=== PATIENT | female | born 1950 | race Caucasian/White ===

== ENCOUNTER 2018-07-29 16:38 | Emergency (ER) | payer OTHER ==
[2018-07-29 16:45] VITALS: BP 108/70; PULSE 84; TEMP 97.8; BMI 33.8
--- NOTE | 2018-07-29 17:52 | PDOC ---
History of Present Illness - General Chief Complaint: Redness To Affected Area Stated Complaint: FALL Time Seen by Provider: 07/29/18 17:36 History Source: Patient Exam Limitations: No Limitations - History of Present Illness Initial Comments: CHIEF COMPLAINT: 67 y/o afebrile female with no significant PMH c/o worsened left aranda wound. HISTORY OF PRESENT ILLNESS: The patient fell on 07/21. She was seen at [facility] and had xrays of her left foot/ankle and right knee - both were negative. She states she noticed an open wound on her left aranda and applied [place] alysa face mask, which she thinks caused an infection. She came here on 07/24, was evaluated and started on keflex and tylenol. she states the pain has not improved at all and the redness around the wound is worse. She denies fever, chills, streaking, MONGE, dizziness, CP, SOB, n/v/d, abd pain, hematuria, dysuria. Vital signs on arrival are within normal limits. REVIEW OF SYSTEMS: GENERAL/CONSTITUTIONAL: No fever/chills. No weakness. No weight change. MUSCULOSKELETAL: +left foot and ankle pain, swelling and redness. No neck or back pain. SKIN: +open wound to left aranda NEUROLOGIC: No headache, vertigo, loss of consciousness, or loss of sensation. PHYSICAL EXAM: VITAL_SIGNS: within normal limits GENERAL_APPEARANCE: alert, cooperative, no obvious discomfort. MENTAL_STATUS: speech clear, oriented X 3, responds appropriately to questions. NEURO: motor intact and sensory intact in injured extremity. EXTREMITIES: good pulse in injured extremity. Distal left LE, ankle and foot with edema, erythema and warmth. 0.5cm in diameter superficial open wound that appears to be healing well with 6cm of surrounding erythema. Based on prior exam of 07/24, the surrounding erythema has grown from 3cm to 6cm. No streaking. No obvious deformity. SKIN: warm, dry, good color. Past History - Past Medical History Allergies/Adverse Reactions: Allergies Allergy/AdvReac Type Severity Reaction Status Date / Time No Known Allergies Allergy Verified 07/29/18 16:41 Home Medications: Ambulatory Orders Cephalexin [Keflex] 500 mg PO BID #14 capsule 07/24/18 Sulfamethoxazole/Trimethoprim [Bactrim Ds -] 1 tab PO BID #20 tablet 07/29/18 Tramadol HCl 50 mg PO BID #20 tablet MDD 3 07/29/18 CVA: Yes (TIA) COPD: No CHF: No DVT: No - Surgical History Abdominal Surgery: Yes (LT OOPHERECTOMY) - Suicide/Smoking/Psychosocial Hx Smoking History: Never smoked Hx Alcohol Use: No Drug/Substance Use Hx: No *Physical Exam - Vital Signs Last Vital Signs Temp Pulse Resp BP Pulse Ox 97.8 F 84 18 108/70 95 07/29/18 16:42 07/29/18 16:42 07/29/18 16:42 07/29/18 16:42 07/29/18 16:42 ED Treatment Course - LABORATORY CBC & Chemistry Diagram: 07/29/18 18:00 07/29/18 18:00 Medical Decision Making - Medical Decision Making A/P: 67 y/o female with ? worsened left distal aranda wound with ankle swelling. Plan is as follows: 1. Labs 2. Xray to r/o osteo 3. IV toradol Xray left foot/ankle IMPRESSION: (Wet read) No osteo or fracture 10.4 white count with no left shift No fever No streaking Gave patient all results Will send rx for Bactrim to add to keflex Will give DIMITRIOS bandage to left ankle. Will also send tramadol for more pain relief. Instructed the patient to ice the affected area, keep taking tylenol and return to the ER with any worsening or concerning symptoms. *DC/Admit/Observation/Transfer Diagnosis at time of Disposition: Cellulitis Qualifiers: Site of cellulitis: extremity Site of cellulitis of extremity: lower extremity Laterality: left Qualified Code(s): L03.116 - Cellulitis of left lower limb - Discharge Dispostion Disposition: HOME Condition at time of disposition: Good - Referrals Referrals: Gonzales Ramirez MD [Staff Physician] - (Call Tuesday) - Patient Instructions Printed Discharge Instructions: DI for Cellulitis -- Adult, How To Perform RICE (Rest, Ice, Compress, Elevate) Additional Instructions: Discharge Instructions: -Your xray was normal with no broken bones and no bone infection -Your lab results were normal with no sign of infection -A prescription for another antibiotic has been sent to your pharmacy; please take this PLUS the other antibiotic you were already prescribed -A prescription for another pain medication has been sent to your pharmacy; it may cause drowsiness -Use DIMITRIOS bandage to affected ankle -Apply ice to affected area -Call Dr. Ramirez on Tuesday to schedule follow up appointment Instrucciones de descarga: -Miller radiografa era normal, sin fracturas de huesos ni infeccin de huesos. -Geovanna resultados de laboratorio fueron normales sin signos de infeccin. -Loreta receta para otro antibitico monge sido enviada a [employer]; por favor tome teddy MS el otro antibitico que ya le recetaron -Loreta receta para otro medicamento para el dolor monge sido enviada a [employer]; puede causar somnolencia -Utilizar vendaje DIMITRIOS para el tobillo afectado. -Aplicar hielo en la tressa afectada. -Llame al Dr. Ramirez el hood para programar loreta karyn de seguimiento. Print Language: TUNISIAN - Post Discharge Activity
[2018-07-29 18:06] LABS: BASO % 0.9 % (0-2.0); EOS % 1.8 % (0-4.5); HEMATOCRIT 39.7 % (32.4-45.2); HEMOGLOBIN 13.2 GM/dL (10.7-15.3); LYMPH % 25.9 % (8-40); MCH 28.4 pg (25.7-33.7); MCHC 33.2 g/dl (32.0-36.0); MEAN CELL VOLUME 85.6 fl (80-96); MEAN PLT VOLUME 9.3 fl (7.5-11.1); MONO % 9.9 % (3.8-10.2); NEUT % 61.5 % (42.8-82.8); PLATELET COUNT 255 K/MM3 (134-434); RBC 4.64 M/mm3 (3.60-5.2); RDW 13.4 % (11.6-15.6); WHITE BLOOD COUNT 10.4 K/mm3 (4.0-10.0)
[2018-07-29] MEDS ORDERED: KETOROLAC TROMETHAMINE 30 MG/1 ML VIAL IVPUSH ONE (18:12)
[2018-07-29] MEDS ORDERED: KETOROLAC TROMETHAMINE 30 MG/1 ML VIAL ONE (18:13)
[2018-07-29 18:41] LABS: ALBUMIN 3.5 g/dl (3.4-5.0); ALK PHOS 101 U/L (45-117); ANION GAP 7 MMOL/L (8-16); BILIRUBIN,TOTAL 0.2 mg/dL (0.2-1); BLOOD UREA NITROGEN 24 mg/dL (7-18); CALCIUM 9.2 mg/dL (8.5-10.1); CHLORIDE 111 mmol/L (98-107); CO2 23 mmol/L (21-32); CREATININE 0.6 mg/dL (0.55-1.3); GLUCOSE,RANDOM 100 mg/dL (74-106); POTASSIUM 4.5 mmol/L (3.5-5.1); SGOT/AST 19 U/L (15-37); SGPT/ALT 31 U/L (13-61); SODIUM 141 mmol/L (136-145); TOT PROT 7.3 g/dl (6.4-8.2)
== END 2018-07-29 19:12 | disposition home or self-care (01) ==
LOC: JER 16:38
PROC: 3E0333Z Introduction of Anti-inflammatory into Peripheral Vein, Percutaneous Approach (ICD-10-PCS; principal; 2018-07-29)
DX: L03.116 Cellulitis of left lower limb (principal); Z86.73 Personal history of transient ischemic attack (TIA), and cerebral infarction without residual deficits
CPT/HCPCS: 36415; 73610-TC-LT-FY; 73630-TC-LT; 80053; 85025; 87040; 96374; 99281-25

== ENCOUNTER 2018-08-02 19:54 | Inpatient (IN) | payer OTHER ==
--- NOTE | 2018-08-02 21:00 | PDOC ---
Attending Attestation - HPI HPI: 08/02/18 22:08 The patient is a 67 year old female, with a significant past medical history of TIA, HTN and bilateral lower extremity edema, who presents to the ED complaining of left lower extremity pain for the past 2 weeks that has been worsening. She reports that she hit a metal door and has been swollen since. She states that she applied [place] Eamon for inflammation prior to her ED visit 2 weeks ago where she was given Keflex and bacitracin cream with strict return precautions. Patient returned Tuesday and given Bactrim. The patient denies chest pain, shortness of breath, headache and dizziness. Denies fever, chills, nausea, vomiting, diarrhea or constipation. Denies dysuria , frequency, urgency and hematuria. Allergies: None Past surgical history: LT OOPHERECTOMY) Social History: No alcohol, tobacco or drug use reported <Benjamin Ray - Last Filed: 08/02/18 22:08> - Resident Resident Name: Dash Fonseca - ED Attending Attestation I have performed the following: I have examined & evaluated the patient, The case was reviewed & discussed with the resident, I agree w/resident's findings & plan, Exceptions are as noted - Physicial Exam PE: 08/02/18 23:03 Patient is awake and alert, well-nourished, in mild distress Normocephalic and atraumatic PERRLA, EOMI CTA RRR Abdomen soft, nontender, nondistended Left lower extremity: + well demarcated (approx 5cm in diameter) area of erythema with central necrotic center to the medial aspect of the extremity anterior to the medial malleolus. Neurovascularly intact distally; full range of motion of the ankle and foot. + Minimal lymphogenic spread is noted proximally. There is no crepitus or subcutaneous emphysema. - Medical Decision Making 08/02/18 23:10 67-year-old female presents to the ER with signs and symptoms of soft tissue infection that has failed to respond to the course of by mouth cephalexin followed by a course of by mouth Bactrim. I suspect osteomyelitis. Necrotizing fasciitis is less likely. Patient's hemodynamically stable and nontoxic appearing. We'll administer vancomycin and ceftazidime. Will admit for infectious disease evaluation and IV antibiotics. <Serafin Ny - Last Filed: 08/02/18 23:11>
[2018-08-02] MEDS ORDERED: WATER IVPB ONE (21:44)
[2018-08-02] MEDS ORDERED: VANCOMYCIN IVPB ONE (21:44)
[2018-08-02] MEDS ORDERED: DEXTROSE 5% IVPB ONE (21:44)
--- NOTE | 2018-08-02 22:03 | PDOC ---
History of Present Illness - General Chief Complaint: Redness To Affected Area Stated Complaint: LEFT ANKLE PAIN Time Seen by Provider: 08/02/18 20:14 History Source: Patient, Friend (translation) Exam Limitations: No Limitations - History of Present Illness Initial Comments: 08/02/18 21:49 67 yo F, pmh of HTN and bilateral lower ext edema (pt states she takes Clopidogrel for an unknown reason) presents to ED with [facility] as translators for 2 weeks of worsening left lower limb pain, redness and swelling that started after hitting a metal door. Pt states she applied [place] Eamon for inflammation prior to her ED visit 2 weeks ago where she was given Keflex and bacitracin cream with strict return precautions. Patient returned Tuesday and given Bactrim. Pt taking Tylenol for pain 650mg 3x per day which helps. Pt states this am the swelling worsened but area of involvement and quality of pain have not changed. Pt has pain when leg is hanging off bed. Pt had recent negative X ray but MRI non contrast done today in hospital, no official read at this time. Pt denies N/V/F/C, CP, SOB, calf tenderness or changes in urinary habits but does admit to loose stools since starting antibiotics 2 weeks ago. \ Past History - Past Medical History Allergies/Adverse Reactions: Allergies Allergy/AdvReac Type Severity Reaction Status Date / Time No Known Allergies Allergy Verified 07/29/18 16:41 Home Medications: Ambulatory Orders Cephalexin [Keflex] 500 mg PO BID #14 capsule 07/24/18 Sulfamethoxazole/Trimethoprim [Bactrim Ds -] 1 tab PO BID #20 tablet 07/29/18 Tramadol HCl 50 mg PO BID #20 tablet MDD 3 07/29/18 CVA: Yes (TIA) COPD: No CHF: No DVT: No - Surgical History Abdominal Surgery: Yes (LT OOPHERECTOMY) - Suicide/Smoking/Psychosocial Hx Smoking History: Never smoked Hx Alcohol Use: No Drug/Substance Use Hx: No Review of Systems - Review of Systems Constitutional: No: Chills, Fever Respiratory: No: Shortness of Breath Cardiac (ROS): No: Chest Pain, Lightheadedness ABD/GI: Yes: Diarrhea (loose stools since taking antibiotics). No: Constipated , Nausea, Vomiting : No: Burning, Dysuria Integumentary: Yes: Other (swelling and redness to LLE). No: Pruritus *Physical Exam - Vital Signs Last Vital Signs Temp Pulse Resp BP Pulse Ox 97.6 F 89 18 123/76 97 08/02/18 19:57 08/02/18 19:57 08/02/18 19:57 08/02/18 19:57 08/02/18 19:57 - Physical Exam General Appearance: Yes: Nourished, Appropriately Dressed. No: Apparent Distress HEENT: positive: EOMI Respiratory/Chest: positive: Lungs Clear, Normal Breath Sounds. negative: Respiratory Distress, Accessory Muscle Use Cardiovascular: positive: Regular Rhythm, Regular Rate, S1, S2, Edema (chronic LE edema however L side more swollen today than past). negative: JVD, Murmur Vascular Pulses: Dorsalis-Pedis (R): 4+, Doralis-Pedis (L): 4+ Comments:: 08/02/18 22:51 popliteal R and L pulses equal Gastrointestinal/Abdominal: positive: Normal Bowel Sounds, Flat, Soft. negative : Guarding, Rebound, Tenderness Extremity: positive: Normal Capillary Refill Integumentary: positive: Dry, Warm, Other (left lower leg swelling, erythema (3 inche diameter) and tracking of redness with tenderness to affected area. No ) Neurologic: positive: Fully Oriented, Alert, Normal Mood/Affect, Normal Response ED Treatment Course - LABORATORY CBC & Chemistry Diagram: 08/02/18 23:20 *DC/Admit/Observation/Transfer Diagnosis at time of Disposition: Osteomyelitis Qualifiers: Osteomyelitis type: subacute Osteomyelitis location: tibia Laterality: left Qualified Code(s): M86.262 - Subacute osteomyelitis, left tibia and fibula - Discharge Dispostion Condition at time of disposition: Stable Decision to Admit order: Yes - Referrals - Patient Instructions - Post Discharge Activity
[2018-08-02] MEDS ORDERED: DIPHTH,PERTUSS(ACELL),TET 0.5 ML DISP.SYRIN IM ONE (22:12)
[2018-08-02] MEDS ORDERED: cefTAZidime PENTAHYDRATE 1 GM/50ML PRE-DOCKED (RESTRICTED TO ID) IVPB ONE (22:22)
[2018-08-02 23:30] LABS: BASO % 0.8 % (0-2.0); EOS % 1.9 % (0-4.5); HEMOGLOBIN 12.9 GM/dL (10.7-15.3); LYMPH % 25.2 % (8-40); MCH 28.2 pg (25.7-33.7); MEAN CELL VOLUME 85.3 fl (80-96); MEAN PLT VOLUME 10.1 fl (7.5-11.1); MONO % 9.3 % (3.8-10.2); NEUT % 62.8 % (42.8-82.8); PLATELET COUNT 324 K/MM3 (134-434); RBC 4.56 M/mm3 (3.60-5.2); RDW 14.1 % (11.6-15.6); WHITE BLOOD COUNT 9.9 K/mm3 (4.0-10.0)
[2018-08-02 23:43] LABS: INR 1.11 (0.83-1.09); PROTHROMBIN TIME (PATIENT) 13.1 SEC (9.7-13.0)
[2018-08-02 23:46] LABS: ACTIVATED PTT 26.5 SECONDS (25.2-36.5)
[2018-08-03 00:02] LABS: URINE APPEARANCE CLEAR; URINE BILIRUBIN NEGATIVE (<2.0 mg/dL); URINE COLOR COLORLESS; URINE GLUCOSE (UA) NEGATIVE (NEGATIVE); URINE KETONE NEGATIVE (NEGATIVE); URINE LEUK ESTERASE NEGATIVE (NEGATIVE); URINE NITRITE NEGATIVE (NEGATIVE); URINE PROTEIN NEGATIVE (NEGATIVE); URINE UROBILINOGEN NEGATIVE mg/dL (0.2-1.0)
--- NOTE | 2018-08-03 00:21 | HP ---
CHIEF COMPLAINT: Left ankle swelling, pain PCP: Dr Ramirez HISTORY OF PRESENT ILLNESS: Pt is a 67 y/o lady (Leatha Mejia) who presented to [facility] yesterday evening c/o severe left lower extremity erythema, pain, and swelling. Pt endorses she injured her leg on a screen door earlier this month (07/19/18). Pt went to [facility] earlier this month where an xray was taken of her left lower extremity which did not reveal any fracture. Pt decided to use [place] alysa (bentonite alysa) after her leg was not healing. Pt came to our ED where the alysa was removed from her wound by the attending physician and was prescribed Keflex.. Pt then went gain to our ED on 07/29 where she was then prescribed Bactrim in addition to her Keflex as her wound was not healing. Pt earlier yesterday went to our Medical clinic and was then referred to our hospital for an MRI of her lower extremity. Pt states symptoms have progressed. Denies chest pain, shortness of breath, lightheadedness, nausea or vomiting. ER course was notable for: (1) CRP 0.8 (2) Ceftazadime 2 gm (3) Zosyn 3.375 gm Recent Travel: Denies PAST MEDICAL HISTORY: Peptic ulcer (resolved), thyroid nodule, TIA?, PAST SURGICAL HISTORY: Social History: Smoking:denies Alcohol:denies Drugs: denies Family History: Paternal grandfather-> stomach cancer, Maternal grandfather colon cancer. Mom--> HTN, TIA? Allergies No Known Allergies Allergy (Verified 07/29/18 16:41) HOME MEDICATIONS: Home Medications Medication Instructions Recorded Cephalexin [Keflex] 500 mg PO BID #14 capsule 07/24/18 Sulfamethoxazole/Trimethoprim 1 tab PO BID #20 tablet 07/29/18 [Bactrim Ds -] Tramadol HCl 50 mg PO BID #20 tablet MDD 3 07/29/18 REVIEW OF SYSTEMS CONSTITUTIONAL: Absent: fever, chills, diaphoresis, generalized weakness, malaise, loss of appetite, weight change HEENT: Absent: rhinorrhea, nasal congestion, throat pain, throat swelling, difficulty swallowing, mouth swelling, ear pain, eye pain, visual changes CARDIOVASCULAR: Absent: chest pain, syncope, palpitations, irregular heart rate, lightheadedness , peripheral edema RESPIRATORY: Absent: cough, shortness of breath, dyspnea with exertion, orthopnea, wheezing, stridor, hemoptysis GASTROINTESTINAL: Absent: abdominal pain, abdominal distension, nausea, vomiting, diarrhea, constipation, melena, hematochezia GENITOURINARY: Absent: dysuria, frequency, urgency, hesitancy, hematuria, flank pain, genital pain MUSCULOSKELETAL: PRESENT: Left leg swelling SKIN: Absent: rash, itching, pallor HEMATOLOGIC/IMMUNOLOGIC: Absent: easy bleeding, easy bruising, lymphadenopathy, frequent infections ENDOCRINE: Absent: unexplained weight gain, unexplained weight loss, heat intolerance, cold intolerance NEUROLOGIC: Absent: headache, focal weakness or paresthesias, dizziness, unsteady gait, seizure, mental status changes, bladder or bowel incontinence PSYCHIATRIC: Absent: anxiety, depression, suicidal or homicidal ideation, hallucinations. PHYSICAL EXAMINATION Vital Signs - 24 hr 08/02/18 19:57 Temperature 97.6 F Pulse Rate 89 Respiratory 18 Rate Blood Pressure 123/76 O2 Sat by Pulse 97 Oximetry (%) GENERAL:AA)x3, NAD HEAD: NC/AT EYES: R pupil dilated, left constricted 2/2 surgery EARS, NOSE, THROAT: MMM NECK: Supple, No thyromegaly, no adenopathy LUNGS:CTA B/L. HEART: RRR, No MRG S1 S2 ABDOMEN: ND No HSM NT MUSCULOSKELETAL: Tenderness LLE UPPER EXTREMITIES: 2No CCE LOWER EXTREMITIES:Erythema, pain, black necrotic eschar LLE NEUROLOGICAL: CN 2-12 intact SKIN: Cellulitis LLE Laboratory Results - last 24 hr 08/02/18 08/02/18 08/02/18 23:20 23:20 23:20 WBC 9.9 RBC 4.56 Hgb 12.9 Hct 39.0 MCV 85.3 MCH 28.2 MCHC 33.0 RDW 14.1 Plt Count 324 D MPV 10.1 Absolute Neuts (auto) 6.2 Neutrophils % 62.8 Lymphocytes % 25.2 Monocytes % 9.3 Eosinophils % 1.9 Basophils % 0.8 Nucleated RBC % 0 PT with INR 13.10 H INR 1.11 H PTT (Actin FS) 26.5 Lactic Acid 1.2 Urine Color Urine Appearance Urine pH Ur Specific [place] Urine Protein Urine Glucose (UA) Urine Ketones Urine Blood Urine Nitrite Urine Bilirubin Urine Urobilinogen Ur Leukocyte Esterase 08/02/18 23:40 WBC RBC Hgb Hct MCV MCH MCHC RDW Plt Count MPV Absolute Neuts (auto) Neutrophils % Lymphocytes % Monocytes % Eosinophils % Basophils % Nucleated RBC % PT with INR INR PTT (Actin FS) Lactic Acid Urine Color Colorless Urine Appearance Clear Urine pH 5.0 Ur Specific [place] 1.008 L Urine Protein Negative Urine Glucose (UA) Negative Urine Ketones Negative Urine Blood Negative Urine Nitrite Negative Urine Bilirubin Negative Urine Urobilinogen Negative Ur Leukocyte Esterase Negative ASSESSMENT/PLAN: Pt is a 67 y/o lady (B. Roberto) who presented to [facility] yesterday evening c/o severe left lower extremity erythema, pain, and swelling # Cellulitis/Osteomyelitis -vancomycin IV -zosyn IV -Blood Cultures -ID Consult -MRI Pending offical read -surgery consult -Warm compress -Doppler LE FEN LR@75cc/hr Monitor Electrolytes Regular Diet DVT ppx: Hep SQ TID Dispo: Continue to monitor med-surg Visit type - Emergency Visit Emergency Visit: Yes ED Registration Date: 08/03/18 Care time: The patient presented to the Emergency Department on the above date and was hospitalized for further evaluation of their emergent condition. - New Patient This patient is new to me today: Yes Date on this admission: 08/03/18 - Critical Care Critical Care patient: No
[2018-08-03 05:26] LABS: ALBUMIN 3.5 g/dl (3.4-5.0); ALK PHOS 96 U/L (45-117); ANION GAP 7 MMOL/L (8-16); BILIRUBIN,TOTAL 0.4 mg/dL (0.2-1); BLOOD UREA NITROGEN 21 mg/dL (7-18); CALCIUM 9.2 mg/dL (8.5-10.1); CHLORIDE 110 mmol/L (98-107); CO2 22 mmol/L (21-32); CREATININE 0.8 mg/dL (0.55-1.3); GLUCOSE,RANDOM 99 mg/dL (74-106); POTASSIUM 4.3 mmol/L (3.5-5.1); SGOT/AST 12 U/L (15-37); SGPT/ALT 26 U/L (13-61); SODIUM 140 mmol/L (136-145); TOT PROT 6.9 g/dl (6.4-8.2)
[2018-08-03] MEDS ORDERED: HEPARIN NA (PORCINE) 5,000 UNITS/ML 1ML VIAL ONE (06:36)
[2018-08-03] MEDS ORDERED: PIPERACILLIN/TAZOB 3.375 GM 3.375 GM/50 ML BAG IVPB ONE (06:37)
[2018-08-03] MEDS ORDERED: PIPERACILLIN/TAZOB 3.375 GM 3.375 GM in DEXTROSE 5%-WATER - 50 ML IVPB ONE (06:45)
[2018-08-03 06:46] LABS: BASO % 0.6 % (0-2.0); EOS % 1.7 % (0-4.5); HEMATOCRIT 40.1 % (32.4-45.2); LYMPH % 22.3 % (8-40); MCH 27.7 pg (25.7-33.7); MCHC 32.4 g/dl (32.0-36.0); MEAN CELL VOLUME 85.6 fl (80-96); MEAN PLT VOLUME 8.9 fl (7.5-11.1); MONO % 9.1 % (3.8-10.2); NEUT % 66.3 % (42.8-82.8); PLATELET COUNT 249 K/MM3 (134-434); RBC 4.68 M/mm3 (3.60-5.2); RDW 13.6 % (11.6-15.6); WHITE BLOOD COUNT 8.4 K/mm3 (4.0-10.0)
[2018-08-03] MEDS: HEPARIN NA (PORCINE) 5,000 UNITS/ML 1ML VIAL SQ SCH ×3 (06:50→22:46)
--- NOTE | 2018-08-03 06:51 | PN ---
Teaching Attending Note Name of Resident: Vladislav Mane ATTENDING PHYSICIAN STATEMENT I saw and evaluated the patient. Chart, data, imaging reviewed. I reviewed the resident's note and discussed the case with the resident. I agree with the resident's findings and plan as documented. SUBJECTIVE: 67 yo F, pmh of HTN presents to ED with 2 weeks of worsening left lower limb pain, redness and swelling that started after hitting a metal door. It did not respond to keflex or bactrim PO. Patient reports severe pain. Denied any fevers or chills. There was concern for possible OM. MRI was performed in ER but no official read. She received IV vancomycin and ceftazidime. She is able to ambulate. OBJECTIVE: Last Vital Signs Temp Pulse Resp BP Pulse Ox 99.0 F 92 H 18 127/77 100 08/03/18 04:43 08/03/18 04:43 08/03/18 04:43 08/03/18 04:43 08/03/18 04:43 general- nad, aaox3 heent- at, nc neck - supple cv -s1+s2+ rrr chest -cta abdomen- soft, bs+, nt ext-lower left extremity- black eschar surrounded by erythema, tender to palpation Abnormal Lab Results 08/02/18 08/02/18 08/03/18 23:20 23:40 01:28 PT with INR 13.10 H INR 1.11 H Chloride Anion Gap BUN AST C-Reactive Protein 0.8 H Ur Specific [place] 1.008 L 08/03/18 04:39 PT with INR INR Chloride 110 H Anion Gap 7 L BUN 21 H AST 12 L C-Reactive Protein Ur Specific [place] ASSESSMENT AND PLAN: 67yo woman with left lower extremity cellulitis with eschar post trauma. Should rule out osteomyelitis as well. Severe pain warrants surgical evaluation to r/o surgical limb, however low suspicion for compartment syndrome and necrotizing fascitis at this time. -admit to med/surg -surgery consult -blood cultures x2 -vancomycin IV -zosyn IV -send ESR -MRI of left lower ext- f/u report -lower ext duplex u/s to r/o dvt -morphine IV prn for eason control -heparin sc for dvt ppx
[2018-08-03 07:12] LABS: ANION GAP 10 MMOL/L (8-16); BLOOD UREA NITROGEN 20 mg/dL (7-18); CALCIUM 9.1 mg/dL (8.5-10.1); CHLORIDE 109 mmol/L (98-107); CO2 22 mmol/L (21-32); CREATININE 0.8 mg/dL (0.55-1.3); GLUCOSE,RANDOM 102 mg/dL (74-106); MAGNESIUM 2.3 mg/dL (1.8-2.4); PHOSPHOROUS 4.2 mg/dL (2.5-4.9); POTASSIUM 4.4 mmol/L (3.5-5.1); SODIUM 140 mmol/L (136-145)
--- NOTE | 2018-08-03 07:28 | CONSULT ---
Consult Consult Specialty:: General Surgery Reason for Consultation:: Lower Extremity Compartment Syndrome - History of Present Illness Chief Complaint: leg wound History of Present Illness: 67 y/o lady (Leatha Mejia) who presented to [facility] yesterday evening c/o severe left lower extremity erythema, pain, and swelling. Pt endorses she injured her leg on a screen door earlier this month (07/19/18). Pt went to [facility] earlier this month where an xray was taken of her left lower extremity which did not reveal any fracture. Pt decided to use [place] alysa ( bentonite alysa) after her leg was not healing. Pt came to our ED where the alysa was removed from her wound by the attending physician and was prescribed Keflex.. Pt then went gain to our ED on 07/29 where she was then prescribed Bactrim in addition to her Keflex as her wound was not healing. We were asked to assess. - History Source History Provided By: Patient, Medical Record Limitations to Obtaining History: No Limitations - Alcohol/Substance Use Hx Alcohol Use: No - Smoking History Smoking history: Never smoked Home Medications - Allergies Allergies/Adverse Reactions: Allergies Allergy/AdvReac Type Severity Reaction Status Date / Time No Known Allergies Allergy Verified 07/29/18 16:41 - Home Medications Home Medications: Ambulatory Orders Acetaminophen [Tylenol] 650 mg PO DAILY 08/03/18 Clopidogrel Bisulfate [Clopidogrel] 75 mg PO DAILY 08/03/18 Furosemide 20 mg PO DAILY 08/03/18 Potassium Chloride 20 meq PO DAILY 08/03/18 Review of Systems - Review of Systems Constitutional: denies: Chills, Fever Eyes: denies: Blind Spots, Recent Change in Vision HENT: denies: Difficult Swallowing, Throat Pain, Toothache Neck: denies: Stiffness, Swollen Glands, Tenderness Cardiovascular: denies: Chest Pain, Palpitations Respiratory: denies: Cough, SOB Gastrointestinal: denies: Abdominal Pain, Constipation, Diarrhea Genitourinary: denies: Discharge, Dysuria Breasts: reports: No Symptoms Reported. denies: Pain Musculoskeletal: reports: Extremity Pain Integumentary: denies: Erythema, Lesions, Rash, Wound Neurological: denies: Seizure, Syncope Endocrine: denies: Unexplained Weight Gain, Unexplained Weight Loss Hematology/Lymphatic: denies: Easily Bruised, Excessive Bleeding Psychiatric: denies: Anxiety, Depression Physical Exam Vital Signs: Vital Signs Temperature 99.0 F 08/03/18 04:43 Pulse Rate 92 H 08/03/18 04:43 Respiratory Rate 18 08/03/18 04:43 Blood Pressure 127/77 08/03/18 04:43 O2 Sat by Pulse Oximetry (%) 100 08/03/18 04:43 Vital Signs Period Temp Pulse Resp BP Sys/Chen Pulse Ox Last 24 Hr 97.5 F-98.9 F 66-96 19-20 104-122/63-73 100-100 Constitutional: Yes: Well Nourished, No Distress, Calm Eyes: Yes: Conjunctiva Clear, EOM Intact HENT: Yes: Atraumatic, Normocephalic Neck: Yes: Supple, Trachea Midline Cardiovascular: Yes: Regular Rate and Rhythm, S1, S2 Respiratory: Yes: Regular, CTA Bilaterally Gastrointestinal: Yes: Normal Bowel Sounds, Soft, Abdomen, Obese. No: Tenderness ...Rectal Exam: Yes: Deferred Renal/: No: CVA Tenderness - Left, CVA Tenderness - Right Musculoskeletal: Yes: Joint Stiffness, Joint Swelling (left ankle and aranda) Extremities: Yes: Erythema (left anterior aranda, central scab with surrounding erythema, no fluctuance). No: Calf Tenderness (-holmans sign bilateral), Cool, Cyanosis Edema: Yes Integumentary: No: Jaundice, Laceration Wound/Incision: Yes: Reddened, Unapproximated (2X2cm). No: Clean/Dry, Draining , Bleeding, Excoriated Neurological: Yes: Alert, Oriented Psychiatric: Yes: Alert, Oriented Labs: CBC, BMP 08/03/18 06:30 08/03/18 06:30 Imaging - Results Cat Scan: Pending MRI: Report Reviewed, Image Reviewed (edema and small fluid collection left leg below the knee) Problem List - Problems (1) Compartment syndrome of left lower extremity Assessment/Plan: 67yo female with chronic truamatic left leg wound and a distal fibular fracture. THIS IS NOT COMPARTMENT SYNDROME. neurovascularly intact distally. no need for acute surgical intervention Consider ortopedic and vascular surgery evaluation MRI to eval for osteo IV antibiotics ID consult Thank you for the opportunity to participate in the care of this patient. Code(s): T79.A22A - TRAUMATIC COMPARTMENT SYNDROME OF LEFT LOWER EXTREMITY, INIT Qualifiers: Encounter type: subsequent encounter Qualified Code(s): T79.A22D - Traumatic compartment syndrome of left lower extremity, subsequent encounter (2) Cellulitis Code(s): L03.90 - CELLULITIS, UNSPECIFIED Qualifiers: Site of cellulitis: extremity Site of cellulitis of extremity: lower extremity Laterality: left Qualified Code(s): L03.116 - Cellulitis of left lower limb (3) Osteomyelitis Code(s): M86.9 - OSTEOMYELITIS, UNSPECIFIED Qualifiers: Osteomyelitis type: subacute Osteomyelitis location: tibia Laterality: left Qualified Code(s): M86.262 - Subacute osteomyelitis, left tibia and fibula (4) Chronic ulcer of leg Code(s): L97.909 - NON-PRS CHRONIC ULC UNSP PRT OF UNSP LOW LEG W UNSP SEVERITY Qualifiers: Laterality: left Non-pressure ulcer stage: limited to breakdown of skin Qualified Code(s): L97.921 - Non-pressure chronic ulcer of unspecified part of left lower leg limited to breakdown of skin
[2018-08-03 07:29] LABS: INR 1.16 (0.83-1.09); PROTHROMBIN TIME (PATIENT) 13.7 SEC (9.7-13.0)
[2018-08-03 07:31] LABS: ACTIVATED PTT 26.1 SECONDS (25.2-36.5)
--- NOTE | 2018-08-03 09:22 | EKG ---
Test Reason : Blood Pressure : / mmHG Vent. Rate : 073 BPM Atrial Rate : 073 BPM P-R Int : 148 ms QRS Dur : 084 ms QT Int : 398 ms P-R-T Axes : 072 055 041 degrees QTc Int : 438 ms NORMAL SINUS RHYTHM NONSPECIFIC T WAVE ABNORMALITY ABNORMAL ECG WHEN COMPARED WITH ECG OF 29-JUN-2010 15:51, NONSPECIFIC T WAVE ABNORMALITY, WORSE IN INFERIOR LEADS NONSPECIFIC T WAVE ABNORMALITY NOW EVIDENT IN LATERAL LEADS Confirmed by TERRY HANNA MD ([id number]) on 08/03/2018 9:21:54 AM Referred By: Confirmed By:TERRY HANNA MD
--- NOTE | 2018-08-03 12:16 | PN ---
Progress Note (short form) - Note Progress Note: Patient seen after midnight; brief progress note for up S: No new complaints. Saw wound; I do not believe this represents any nec fasc or compartment syndrome. Sgy already saw this; they do not think this is the aforementioned dx either. MRI results read; ?OM, occult fracture seen. O: Scab seen over the underlying cellulitic site; no spread beyond margins, no SQ edema, no blisters, etc. Painful to palpation around the site. ROM intact in all directions. HR normal, lungs without acute findings, abd nt nd +bs. A/P: 1) Cellulitis with concern of OM -Defer further tx to ID; will continue to cover broadly for cellulitis with vanco; will defer any abx changes to ID. There was some bone marrow edema seen in the tibial region but given the traumatic mechanism of injury could be due to that. If they do feel this is OM we will help arrange prolonged abx course. 2) Occult Fibular Fx -Likely nonoperative but will consult orthopedic sgy to see her to clear; observed incidentally on the MRI. 3) Achilles Tendinosis of the Affected Ankle -Conservative management, fllowup OP Continuing other medications; dispo pending ID and orthopedics. Visit type - Emergency Visit Emergency Visit: No - New Patient This patient is new to me today: Yes Date on this admission: 08/03/18 - Critical Care Critical Care patient: No
[2018-08-03] MEDS ORDERED: VANCOMYCIN 1 GRAM (PRE-DOCKED) 1,000 MG/250 ML BAG IVPB ONE (13:34)
[2018-08-03] MEDS: LACTATED RINGERS SOLUTION 1,000 ML/1,000 ML INFUS.BAG IV SCH ×2 (13:40→21:01)
[2018-08-03] MEDS: VANCOMYCIN 1 GRAM (PRE-DOCKED) 1,000 MG/250 ML BAG IVPB SCH (13:40)
--- NOTE | 2018-08-03 15:16 | PN ---
Progress Note (short form) - Note Progress Note: ID Consult dictated Cellulitis L LE, possible ST abscess R/O fracture Await c/s Empiric cefazolin Ortho consult
--- NOTE | 2018-08-03 16:12 | CONS ---
INFECTIOUS DISEASE CONSULTATION DATE OF CONSULTATION: DATE OF DICTATION: 08/03/2018 HISTORY OF PRESENT ILLNESS: The patient is a 67-year-old female, nondiabetic, who is evaluated for cellulitis of the left lower extremity. Approximately 2 weeks prior to admission, she had fallen and had sustained trauma to her right knee and had sustained trauma to her distal left lower extremity after being struck by a screen door. She subsequently developed increasing erythema, warmth, and swelling. She was seen in the emergency room on two occasions and treated for cellulitis. On the first occasion, she was treated with Keflex. She returned 5 days later and was given Bactrim in addition to the Keflex. Despite the oral antibiotic therapy, she continued to have pain, swelling, and erythema of the leg. She now returns to the emergency room. She is noted to have an approximately 1-cm, circular eschar which is dry. There is exquisite tenderness around the wound with a well demarcated area of erythema and warmth. There is tenderness to palpation in the area of the medial malleolus. There is also tenderness to palpation of the right knee. An MRI was performed and showed a possible soft-tissue fluid collection and a possible fracture of the fibula. She denies any purulent drainage. She has been afebrile with a normal white blood cell count. PAST MEDICAL HISTORY: Positive for hypertension, TIA, history of breast cancer. She is nondiabetic. PAST SURGICAL HISTORY: Status post left oophorectomy. ALLERGIES: No known allergies. MEDICATIONS: At the present time include heparin, vancomycin, and Zosyn. SOCIAL HISTORY: She resides in the community. She is a nonsmoker, nondrinker. SYSTEMS REVIEW: Neurologic: No loss of consciousness, seizure activity, focal weakness. Cardiac: Negative chest pain or palpitations. Respiratory: Negative cough or sputum production. Gastrointestinal: Positive for nausea and diarrhea. Genitourinary: Negative for urinary tract infection. LABORATORY DATA: White count 8.4, platelets 249. BUN 20, creatinine 0.8. ESR 29. C-reactive protein 0.8. PHYSICAL EXAMINATION: General: On exam, she is in moderate distress, secondary to left lower extremity pain. Vital signs: Temperature 98.8, blood pressure 119/64, pulse 81 and regular, respirations 16 per minute. Eyes: Sclerae are anicteric. Heart: Heart sounds S1, S2. Lungs: Clear. Abdomen: Soft. Extremities: There is a 1-cm, circular eschar present in the area of the left medial malleolus with an approximately 6-cm area of surrounding erythema and warmth. It is tender to touch. There is a small area of induration and possible fluctuance. There is no lymphangitic streaking. Examination of the right knee: The right knee is slightly swollen and warm to touch. There is no appreciable erythema. IMPRESSION: 1. Cellulitis of the left lower extremity. Possible soft-tissue abscess. 2. Rule out fracture of the fibula. PLAN: Await cultures. Will substitute cefazolin 2 g IV piggyback every 8 hours in conjunction with elevation. I would obtain orthopedic consultation in light of possible underlying fibular fracture. Will follow. Thank you for the kind referral. CHIKI DECKER M.D. [id number]
[2018-08-03] MEDS: CEFAZOLIN 2 GM in DEXTROSE 5%-WATER 100 ML IVPB SCH ×2 (17:29→17:30)
[2018-08-03] MEDS ORDERED: ACETAMINOPHEN 325 MG TABLET (FP) PO PRN (20:40)
[2018-08-04] MEDS: VANCOMYCIN 1 GRAM (PRE-DOCKED) 1,000 MG/250 ML BAG IVPB SCH (00:42)
[2018-08-04] MEDS: CEFAZOLIN 2 GM in DEXTROSE 5%-WATER 100 ML IVPB SCH ×3 (02:14→17:33)
[2018-08-04] MEDS: PIPERACILLIN/TAZOB 3.375 GM 3.375 GM in DEXTROSE 5%-WATER - 50 ML IVPB SCH ×2 (02:17→02:18)
[2018-08-04] MEDS: HEPARIN NA (PORCINE) 5,000 UNITS/ML 1ML VIAL SQ SCH ×3 (06:58→21:13)
--- NOTE | 2018-08-04 09:44 | CONSULT ---
Consult - text type - Consultation Consultation Note: FULL CONSULT DICTATED IMP: RESOLVING CELLULITIS LEFT LEG, OCD TALUS, ? OCCULT DISTAL FIBULA FX PLAN: ABX PER ID, PLEASE ORDER A CAM WALKER FOR PATIENT. SHE CAN BE WBAT IN WALKER BOOT
[2018-08-04] MEDS ORDERED: FLU VACCINE QUAD 60 MCG/0.5 ML (MDV 18-19) IM ONE (10:00)
[2018-08-04] MEDS ORDERED: PT OWN MED DRAWER 7, Y5N ONE (10:07)
[2018-08-04] MEDS ORDERED: DEXTROSE 5%-WATER 100 ML IVPB ONE ×2 (10:08→17:23)
[2018-08-04] MEDS ORDERED: ceFAZolin SODIUM 1 GM VIAL ONE ×2 (10:08→17:23)
[2018-08-04] MEDS: LACTATED RINGERS SOLUTION 1,000 ML/1,000 ML INFUS.BAG IV SCH ×2 (10:33→12:40)
--- NOTE | 2018-08-04 11:15 | CONS ---
ORTHOPEDIC CONSULTATION DATE OF CONSULTATION: 08/04/2018 HISTORY OF PRESENT ILLNESS: The patient is a 67-year-old female who is complaining of left leg pain. She had a fall approximately 2 weeks. She said since then, her leg has been bothering her. It has been more swollen and complaining of swelling and pain. Patient has been admitted for IV antibiotics for a wound that is on the distal medial aspect of her leg which seems to be resolving. On physical exam, she has a pen yanci of where the cellulitis was on the medial distal tibia region which seems to be much less than the pen yanci. She has a central wound that has a black eschar which is not draining. She has excellent range of motion of her ankle and toes. She has minimal or mild tenderness over the distal fibula. She has point tenderness over the talus region and the tibiotalar region of the ankle. She is neurovascularly intact. Good motion, hip, ankle, and toes. She has an MRI which was performed which shows that she has an OCD on the medial talar dome and questionable occult fracture of the distal fibula. IMPRESSION: Resolving cellulitis of the left leg and MRI diagnosis of occult fibular fracture and an osteochondral defect. PLAN: I have recommended IV antibiotics; she is to continue as per ID. I will arrange for the patient to get a CAM walker to be weight-bearing as tolerated and a walker. The patient may need operative intervention as an outpatient on the talar dome if that persistently bothers her. The fibula should heal uneventfully. MARISSA BILLINGSLEY M.D. [id number]
[2018-08-04] MEDS ORDERED: VANCOMYCIN 1 GRAM (PRE-DOCKED) 1,000 MG/250 ML BAG IVPB SCH (13:00)
--- NOTE | 2018-08-04 13:33 | PN ---
Physical Exam: SUBJECTIVE: Patient seen and examined. She says pain in her left leg is improving. OBJECTIVE: Vital Signs Period Temp Pulse Resp BP Sys/Chen Pulse Ox Last 24 Hr 97.5 F-98.6 F 66-96 19-20 104-122/63-73 100-100 GENERAL: The patient is awake, alert, and fully oriented, in no acute distress. LUNGS: Breath sounds equal, clear to auscultation bilaterally, no wheezes, no crackles, no accessory muscle use. HEART: Regular rate and rhythm, S1, S2 without murmur, rub or gallop. ABDOMEN: Obese, soft, nontender, nondistended, normoactive bowel sounds, no guarding, no rebound, no hepatosplenomegaly, no masses. EXTREMITIES: 2+ pulses, warm, well-perfused, decreased erythema of distal left lower leg, (+) eschar and mild swelling. Active Medications Generic Name Dose Route Start Last Admin Trade Name Freq PRN Reason Stop Dose Admin Acetaminophen 650 mg 08/03/18 20:40 Tylenol - PO Q6H PRN PAIN LEVEL 6-10 Heparin Sodium (Porcine) 5,000 unit 08/03/18 06:00 08/04/18 06:58 Heparin - SQ Not Given TID ERICKA Lactated Ringer's 1,000 ml in 1,000 mls @ 75 mls/hr 08/03/18 09:15 08/04/18 12:40 Lactated Ringers Solution IV 75 mls/hr ASDIR ERICKA Administration Cefazolin Sodium 2 gm/ 100 mls @ 200 mls/hr 08/03/18 15:30 08/04/18 10:34 Dextrose IVPB 200 mls/hr Q8H-IV ERICKA Administration ASSESSMENT/PLAN: 1. Left leg cellulitis, possible osteomyelitis of left tibia - Improving - Continue Ancef - ID follow up 2. Left fibula fracture, left tibia fracture vs osteomyelitis, osteochondral defect of left talus - Ortho consult appreciated - Weight-bearing as tolerated with CAM boot and walker Visit type - Emergency Visit Emergency Visit: Yes ED Registration Date: 08/03/18 Care time: The patient presented to the Emergency Department on the above date and was hospitalized for further evaluation of their emergent condition. - New Patient This patient is new to me today: Yes Date on this admission: 08/04/18 - Critical Care Critical Care patient: No - Discharge Referral Referred to [facility] No
--- NOTE | 2018-08-04 16:16 | PN ---
Progress Note, Physician History of Present Illness: Awake, alert C/O L LE pain No c/o fever/ chills Tolerating antibiotics Ortho note appreciated - Current Medication List Current Medications: Active Medications Acetaminophen (Tylenol -) 650 mg PO Q6H PRN PRN Reason: PAIN LEVEL 6-10 Heparin Sodium (Porcine) (Heparin -) 5,000 unit SQ TID ERICKA Last Admin: 08/04/18 14:56 Dose: 5,000 unit Lactated Ringer's (Lactated Ringers Solution) 1,000 ml in 1,000 mls @ 75 mls/ hr IV ASDIR ERICKA Last Admin: 08/04/18 12:40 Dose: 75 mls/hr Cefazolin Sodium 2 gm/ (Dextrose) 100 mls @ 200 mls/hr IVPB Q8H-IV ERICKA Last Admin: 08/04/18 10:34 Dose: 200 mls/hr - Objective Vital Signs: Vital Signs Temperature 98.9 F 08/04/18 14:00 Pulse Rate 85 08/04/18 14:00 Respiratory Rate 20 08/04/18 14:00 Blood Pressure 117/69 08/04/18 14:00 O2 Sat by Pulse Oximetry (%) 100 08/04/18 09:00 Constitutional: Yes: No Distress Eyes: Yes: Conjunctiva Clear Cardiovascular: Yes: Regular Rate and Rhythm, S1, S2 Respiratory: Yes: CTA Bilaterally Gastrointestinal: Yes: Normal Bowel Sounds, Soft. No: Tenderness Extremities: Yes: Other (decreased erythema L medial malleolus. float tender. Eschar unchanged) Labs: CBC, BMP 08/03/18 06:30 08/03/18 06:30 INR, PTT INR 1.16 (0.83-1.09) H 08/03/18 06:30 Assessment/Plan Cellulitis L LE Fibular fracture ? Tibial fracture Ostemyelitis v. fracture Continue cefazolin MRI reviewed with radiologist Bone marrow findings felt to be more c/w post traumatic bone contusion than osteo. Etiology of subcentimeter fluid collection not clear Radiologist suggested CT of area to assess for bone erosion anr IR evaluation for possible US- guided fluid aspiration
[2018-08-05] MEDS ORDERED: ceFAZolin SODIUM 1 GM VIAL ONE ×3 (01:12→17:43)
[2018-08-05] MEDS ORDERED: DEXTROSE 5%-WATER 100 ML IVPB ONE ×3 (01:13→17:43)
[2018-08-05] MEDS: CEFAZOLIN 2 GM in DEXTROSE 5%-WATER 100 ML IVPB SCH ×3 (01:22→17:53)
[2018-08-05] MEDS: HEPARIN NA (PORCINE) 5,000 UNITS/ML 1ML VIAL SQ SCH ×3 (05:29→21:06)
[2018-08-05] MEDS: LACTATED RINGERS SOLUTION 1,000 ML/1,000 ML INFUS.BAG IV SCH ×2 (08:58→22:40)
--- NOTE | 2018-08-05 11:33 | PN ---
Progress Note (short form) - Note Progress Note: ct scan suggestive of bone marrow changes secondary to fracture and not infection, still some fluiid present Vital Signs Period Temp Pulse Resp BP Sys/Chen Pulse Ox Last 24 Hr 97.9 F-98.9 F 72-85 16-20 103-146/58-72 98-100 very anxious cor-rrr lungs clear abd soft,nt ext less erythema of the lower leg CBC, BMP 08/03/18 06:30 08/03/18 06:30 Microbiology 08/02/18 21:40 Blood - Peripheral Venous Blood Culture - Preliminary NO GROWTH OBTAINED AFTER 48 HOURS, INCUBATION TO CONTINUE FOR 3 DAYS. 08/02/18 23:20 Blood - Peripheral Venous Blood Culture - Preliminary NO GROWTH OBTAINED AFTER 48 HOURS, INCUBATION TO CONTINUE FOR 3 DAYS. Current Medications Acetaminophen (Tylenol -) 650 mg PO Q6H PRN PRN Reason: PAIN LEVEL 6-10 Heparin Sodium (Porcine) (Heparin -) 5,000 unit SQ TID ERICKA Last Admin: 08/05/18 05:29 Dose: 5,000 unit Lactated Ringer's (Lactated Ringers Solution) 1,000 ml in 1,000 mls @ 75 mls/ hr IV ASDIR ERICKA Last Admin: 08/05/18 08:58 Dose: 75 mls/hr Cefazolin Sodium 2 gm/ (Dextrose) 100 mls @ 200 mls/hr IVPB Q8H-IV ERICKA Last Admin: 08/05/18 08:59 Dose: 200 mls/hr a/p cellulitis ?fluid continue cefazolin re-evaluate on Tuesday to see if fluid collection needs further workup- ? secondary to fracture vs infection Dr Vazquez will f/u patient informed via interpretor
[2018-08-05 17:17] VITALS: BMI 33.5
[2018-08-05] MEDS ORDERED: PT OWN MED DRAWER 7, Y5N ONE (17:41)
--- NOTE | 2018-08-05 18:10 | PN ---
Physical Exam: SUBJECTIVE: Patient seen and examined at the bedside. Feels better, denies pain. OBJECTIVE: Vital Signs Period Temp Pulse Resp BP Sys/Chen Pulse Ox Last 24 Hr 97.9 F-98.4 F 70-85 16-20 103-147/58-74 96-100 GENERAL: The patient is awake, alert, and fully oriented, in no acute distress. HEAD: Normal with no signs of trauma. EYES: PERRL, extraocular movements intact, sclera anicteric, conjunctiva clear. No ptosis. ENT: Ears normal, nares patent, oropharynx clear without exudates, moist mucous membranes. NECK: Trachea midline, full range of motion, supple. ABDOMEN: Soft, nontender, nondistended, normoactive bowel sounds, no guarding, no rebound, no hepatosplenomegaly, no masses. EXTREMITIES: 2+ pulses, warm, well-perfused, no edema. NEUROLOGICAL: Normal speech, gait not observed. PSYCH: Normal mood, normal affect. SKIN: Cellulitis left LE, possible ST abscess, r/o fracture Active Medications Generic Name Dose Route Start Last Admin Trade Name Freq PRN Reason Stop Dose Admin Acetaminophen 650 mg 08/03/18 20:40 Tylenol - PO Q6H PRN PAIN LEVEL 6-10 Heparin Sodium (Porcine) 5,000 unit 08/03/18 06:00 08/05/18 14:41 Heparin - SQ 5,000 unit TID ERICKA Administration Lactated Ringer's 1,000 ml in 1,000 mls @ 75 mls/hr 08/03/18 09:15 08/05/18 08:58 Lactated Ringers Solution IV 75 mls/hr ASDIR ERICKA Administration Cefazolin Sodium 2 gm/ 100 mls @ 200 mls/hr 08/03/18 15:30 08/05/18 17:53 Dextrose IVPB 200 mls/hr Q8H-IV ERICKA Administration ASSESSMENT/PLAN: Patient is a 67 year old female with a significant past medical history of HTN. She presents to ED with 2 weeks of worsening left lower limb pain, redness and swelling that started after hitting a metal door. It did not respond to keflex or bactrim PO. ID/Ortho: Left leg cellulitis with edema Rule out osteomylitis of left tibia. Left tibia fracture vs osteomyelitis. - Failed outpatient antibiotic therapy. - On Cefazolin (dose #3). - Elevate left lower extremity on 3 pillows encouraged - Manage pain - Patient to ambulate with boot and RW - fall precautions - ID following - Ortho noted reviewed - length of antibiotic therapy to be determined. Card: Hypertension, on no home medications. controlled. fen LR @75cc/hr monitor electrolytes low salt diet prophy heparin full code Visit type - Emergency Visit Emergency Visit: Yes ED Registration Date: 08/03/18 Care time: The patient presented to the Emergency Department on the above date and was hospitalized for further evaluation of their emergent condition. - New Patient This patient is new to me today: No - Critical Care Critical Care patient: No - Discharge Referral Referred to [facility] No
[2018-08-06] MEDS ORDERED: ceFAZolin SODIUM 1 GM VIAL ONE ×3 (00:47→17:38)
[2018-08-06] MEDS ORDERED: DEXTROSE 5%-WATER 100 ML IVPB ONE ×3 (00:47→17:38)
[2018-08-06] MEDS: CEFAZOLIN 2 GM in DEXTROSE 5%-WATER 100 ML IVPB SCH ×3 (01:01→17:50)
[2018-08-06] MEDS: HEPARIN NA (PORCINE) 5,000 UNITS/ML 1ML VIAL SQ SCH ×3 (05:39→21:13)
[2018-08-06 09:47] LABS: BASO % 1.1 % (0-2.0); EOS % 3.9 % (0-4.5); HEMATOCRIT 38.3 % (32.4-45.2); HEMOGLOBIN 12.3 GM/dL (10.7-15.3); LYMPH % 32.5 % (8-40); MCH 27.5 pg (25.7-33.7); MCHC 32.2 g/dl (32.0-36.0); MEAN CELL VOLUME 85.4 fl (80-96); MEAN PLT VOLUME 8.6 fl (7.5-11.1); MONO % 10.2 % (3.8-10.2); NEUT % 52.3 % (42.8-82.8); PLATELET COUNT 236 K/MM3 (134-434); RBC 4.49 M/mm3 (3.60-5.2); WHITE BLOOD COUNT 6.1 K/mm3 (4.0-10.0)
[2018-08-06 10:54] LABS: ALBUMIN 3.1 g/dl (3.4-5.0); ALK PHOS 89 U/L (45-117); ANION GAP 11 MMOL/L (8-16); BILIRUBIN,TOTAL 0.7 mg/dL (0.2-1); BLOOD UREA NITROGEN 14 mg/dL (7-18); CALCIUM 8.6 mg/dL (8.5-10.1); CHLORIDE 110 mmol/L (98-107); CO2 24 mmol/L (21-32); CREATININE 0.5 mg/dL (0.55-1.3); GLUCOSE,RANDOM 93 mg/dL (74-106); MAGNESIUM 2.2 mg/dL (1.8-2.4); POTASSIUM 4.2 mmol/L (3.5-5.1); SGOT/AST 16 U/L (15-37); SGPT/ALT 23 U/L (13-61); SODIUM 144 mmol/L (136-145); TOT PROT 6.3 g/dl (6.4-8.2)
--- NOTE | 2018-08-06 14:27 | PN ---
Progress Note (short form) - Note Progress Note: Pt seen and examined. She states her LLE cellulitis is improving dramatically, now that she is on IV antibiotics. Ct scan suggests microtrabecular fractures in the left distal fibula, no evidence of osteomyelitis. PE Area of cellulitic tissue at the left medial distal lower leg much improved , much smaller. preparing box tender. No drainage. Only mildly tender over the distal fibula. Imp LLE cellulitis much improved. For her microtrabecular fibula fracture, we are waiting for the walker boot from central supply. Rec Cont IV antibiotic regimen as per ID. Walker boot has been ordered. I spoke with nursing.
[2018-08-06] MEDS: LACTATED RINGERS SOLUTION 1,000 ML/1,000 ML INFUS.BAG IV SCH (14:35)
--- NOTE | 2018-08-06 15:47 | PN ---
Physical Exam: SUBJECTIVE: Patient seen and examined at the bedside. She feels her wound is improving. OBJECTIVE: Vital Signs Period Temp Pulse Resp BP Sys/Chen Pulse Ox Last 24 Hr 97.9 F-99.1 F 69-83 18-20 113-132/54-81 97 GENERAL: The patient is awake, alert, and fully oriented, in no acute distress. HEAD: Normal with no signs of trauma. EYES: PERRL, extraocular movements intact, sclera anicteric, conjunctiva clear. No ptosis. ENT: Ears normal, nares patent, oropharynx clear without exudates, moist mucous membranes. NECK: Trachea midline, full range of motion, supple. ABDOMEN: Soft, nontender, nondistended, normoactive bowel sounds, no guarding, no rebound, no hepatosplenomegaly, no masses. EXTREMITIES: 2+ pulses, warm, well-perfused, no edema. NEUROLOGICAL: Normal speech, gait not observed. PSYCH: Normal mood, normal affect. SKIN: Cellulitis left LE, possible ST abscess, r/o fracture Laboratory Results - last 24 hr 08/06/18 08/06/18 09:30 09:30 WBC 6.1 RBC 4.49 Hgb 12.3 Hct 38.3 MCV 85.4 MCH 27.5 MCHC 32.2 RDW 14.0 Plt Count 236 MPV 8.6 Absolute Neuts (auto) 3.2 Neutrophils % 52.3 D Lymphocytes % 32.5 D Monocytes % 10.2 Eosinophils % 3.9 D Basophils % 1.1 Nucleated RBC % 0 Sodium 144 Potassium 4.2 Chloride 110 H Carbon Dioxide 24 Anion Gap 11 BUN 14 Creatinine 0.5 L Creat Clearance w eGFR > 60 Random Glucose 93 Calcium 8.6 Magnesium 2.2 Total Bilirubin 0.7 AST 16 ALT 23 Alkaline Phosphatase 89 Total Protein 6.3 L Albumin 3.1 L Active Medications Generic Name Dose Route Start Last Admin Trade Name Freq PRN Reason Stop Dose Admin Acetaminophen 650 mg 08/03/18 20:40 Tylenol - PO Q6H PRN PAIN LEVEL 6-10 Heparin Sodium (Porcine) 5,000 unit 08/03/18 06:00 08/06/18 14:39 Heparin - SQ 5,000 unit TID ERICKA Administration Lactated Ringer's 1,000 ml in 1,000 mls @ 75 mls/hr 08/03/18 09:15 08/06/18 14:35 Lactated Ringers Solution IV 75 mls/hr ASDIR ERICKA Administration Cefazolin Sodium 2 gm/ 100 mls @ 200 mls/hr 08/03/18 15:30 08/06/18 10:14 Dextrose IVPB 200 mls/hr Q8H-IV ERICKA Administration Imaging: ct/lower extremity w/o contrast 08/04/2018 : No discrete areas of bone erosion noted. subcutaneous edema seen along the distal left tibia medially which may be a posttraumatic and/or infections in nature. Ankle/foot left 07/29/2018: 3 views of ankle, some swelling, intact mortise, calcaneal spurring but no signs of fracture or subluxation and no sign of blastic or lytic changes. mri/lower ext joint mr wo ctr/left 08/02/2018: 1.subcutaneous soft tissue edema along the medial aspect of the distal calf at the level of the distal tibia diametaphysis extending distally to the level of the medial mallesous which may be consistent with cellulitis with small focal fluid collection prox. 2. bone marrow edema of the medial aspect of the distal tibial metaphysis could represent either a microtrabecular fracture from the injury however the proximity to the fluid raises the possibility of osteomyelitis. 3. occult fracture of the distal fibula with bone marrow edema. 4. subchrondral cystic changes of the medial talar dome which may be degenerative or due to old osteochondral injury. 5. Mild tendinosis of the distal achiles tendon and small calcanceal spur at the plantar fascia insertion. Assessment/plan: Patient is a 67 year old female with a significant past medical history of HTN. She presents to ED with 2 weeks of worsening left lower limb pain, redness and swelling that started after hitting a metal door. It did not respond to keflex or bactrim PO. ID/Ortho: Left leg cellulitis with edema Occult fracture of the distal fibula with bone marrow edema seen on MRI Left tibia fracture vs osteomyelitis. - Failed outpatient antibiotic therapy. - On Cefazolin (day #4). - Elevate left lower extremity on 3 pillows encouraged - Manage pain - Patient to ambulate with boot and RW - fall precautions - ID following - Ortho noted reviewed - length of antibiotic therapy to be determined. Card: Hypertension, on no home medications. controlled. fen LR @75cc/hr monitor electrolytes low salt diet prophy heparin full code Visit type - Emergency Visit Emergency Visit: Yes ED Registration Date: 08/03/18 Care time: The patient presented to the Emergency Department on the above date and was hospitalized for further evaluation of their emergent condition. - New Patient This patient is new to me today: No - Critical Care Critical Care patient: No - Discharge Referral Referred to [facility] No
[2018-08-07] MEDS ORDERED: DEXTROSE 5%-WATER 100 ML IVPB ONE (01:08)
[2018-08-07] MEDS ORDERED: ceFAZolin SODIUM 1 GM VIAL ONE (01:08)
[2018-08-07] MEDS: CEFAZOLIN 2 GM in DEXTROSE 5%-WATER 100 ML IVPB SCH (01:38)
[2018-08-07] MEDS: LACTATED RINGERS SOLUTION 1,000 ML/1,000 ML INFUS.BAG IV SCH ×3 (04:45→21:17)
[2018-08-07] MEDS: HEPARIN NA (PORCINE) 5,000 UNITS/ML 1ML VIAL SQ SCH ×3 (05:47→21:17)
--- NOTE | 2018-08-07 09:01 | PN ---
Progress Note (short form) - Note Progress Note: Ortho Pt seen and examined- improving left LE cellulitis and left distal fibula fx Selected Entries 08/07/18 06:00 Temperature 97.9 F Pulse Rate 74 Respiratory 18 Rate Blood Pressure 115/70 Laboratory Tests 08/06/18 09:30 WBC 6.1 Hgb 12.3 Hct 38.3 Plt Count 236 decr pain, decr erythema, + ttp lateral mal calf soft, nt, nvi a/p Abx as per ID walker boot should be supplied today/tomorrow wbat with boot d/w Dr. Cooley
[2018-08-07 09:04] LABS: EOS % 4.3 % (0-4.5); HEMATOCRIT 37.8 % (32.4-45.2); HEMOGLOBIN 12.2 GM/dL (10.7-15.3); LYMPH % 37.7 % (8-40); MCH 27.8 pg (25.7-33.7); MCHC 32.4 g/dl (32.0-36.0); MEAN CELL VOLUME 86.1 fl (80-96); MEAN PLT VOLUME 8.3 fl (7.5-11.1); MONO % 8.3 % (3.8-10.2); NEUT % 48.7 % (42.8-82.8); PLATELET COUNT 226 K/MM3 (134-434); RBC 4.39 M/mm3 (3.60-5.2); RDW 13.6 % (11.6-15.6); WHITE BLOOD COUNT 7.3 K/mm3 (4.0-10.0)
[2018-08-07 09:37] LABS: ALBUMIN 3.1 g/dl (3.4-5.0); ALK PHOS 89 U/L (45-117); ANION GAP 9 MMOL/L (8-16); BILIRUBIN,TOTAL 0.3 mg/dL (0.2-1); BLOOD UREA NITROGEN 14 mg/dL (7-18); CALCIUM 8.5 mg/dL (8.5-10.1); CHLORIDE 111 mmol/L (98-107); CO2 24 mmol/L (21-32); CREATININE 0.5 mg/dL (0.55-1.3); GLUCOSE,RANDOM 91 mg/dL (74-106); POTASSIUM 4.3 mmol/L (3.5-5.1); SGOT/AST 35 U/L (15-37); SGPT/ALT 47 U/L (13-61); SODIUM 145 mmol/L (136-145); TOT PROT 6.3 g/dl (6.4-8.2)
[2018-08-07] MEDS: CEFAZOLIN 2 GM/D5W 2 GM/50 ML ML IVPB SCH ×2 (10:42→17:23)
--- NOTE | 2018-08-07 15:06 | PN ---
Progress Note (short form) - Note Progress Note: Ortho Pt fitted for walker boot, instructed on proper use. All questions answered.
--- NOTE | 2018-08-07 16:50 | PN ---
Progress Note, Physician History of Present Illness: Awake, alert C/O less L LE pain No c/o fever/ chills Tolerating antibiotics - Current Medication List Current Medications: Active Medications Acetaminophen (Tylenol -) 650 mg PO Q6H PRN PRN Reason: PAIN LEVEL 6-10 Heparin Sodium (Porcine) (Heparin -) 5,000 unit SQ TID ERICKA Last Admin: 08/07/18 14:26 Dose: 5,000 unit Lactated Ringer's (Lactated Ringers Solution) 1,000 ml in 1,000 mls @ 75 mls/ hr IV ASDIR ERICKA Last Admin: 08/07/18 14:26 Dose: Not Given Cefazolin Sodium/Dextrose (Ancef 2 Gm Premixed Ivpb -) 2 gm in 50 mls @ 100 mls /hr IVPB Q8H-IV ERICKA Stop: 08/10/18 02:29 Last Admin: 08/07/18 10:42 Dose: 100 mls/hr - Objective Vital Signs: Vital Signs Temperature 99.4 F 08/07/18 10:00 Pulse Rate 78 08/07/18 10:00 Respiratory Rate 20 08/07/18 10:00 Blood Pressure 140/92 08/07/18 10:00 O2 Sat by Pulse Oximetry (%) 97 08/07/18 09:00 Constitutional: Yes: No Distress Cardiovascular: Yes: Regular Rate and Rhythm, S1, S2 Respiratory: Yes: CTA Bilaterally Gastrointestinal: Yes: Normal Bowel Sounds, Soft. No: Tenderness Extremities: Yes: Other (decreased erythema L medial malleolus cubing machine tender ? fluctuant) Labs: CBC, BMP 08/07/18 08:50 08/07/18 08:50 INR, PTT INR 1.16 (0.83-1.09) H 08/03/18 06:30 Assessment/Plan Cellulitis L LE Fibular fracture Subcutaneous fluid collection hematoma v. abscess Continue cefazolin CT reviewed with radiologist No evidence of bone destruction/ osteomyelitis IR evaluation for possible US- guided aspiration of fluid collection
--- NOTE | 2018-08-07 23:35 | PN ---
Physical Exam: SUBJECTIVE: Patient seen and examined at the bedside. She feels like her wound is improving. OBJECTIVE: Vital Signs Period Temp Pulse Resp BP Sys/Chen Pulse Ox Last 24 Hr 97.9 F-99.4 F 74-78 18-20 115-145/70-92 97 GENERAL: The patient is awake, alert, and fully oriented, in no acute distress. HEAD: Normal with no signs of trauma. EYES: PERRL, extraocular movements intact, sclera anicteric, conjunctiva clear. No ptosis. ENT: Ears normal, nares patent, oropharynx clear without exudates, moist mucous membranes. NECK: Trachea midline, full range of motion, supple. ABDOMEN: Soft, nontender, nondistended, normoactive bowel sounds, no guarding, no rebound, no hepatosplenomegaly, no masses. EXTREMITIES: 2+ pulses, warm, well-perfused, no edema. NEUROLOGICAL: Normal speech, gait not observed. PSYCH: Normal mood, normal affect. SKIN: Cellulitis left LE, r/o fracture Laboratory Results - last 24 hr 08/07/18 08/07/18 08:50 08:50 WBC 7.3 RBC 4.39 Hgb 12.2 Hct 37.8 MCV 86.1 MCH 27.8 MCHC 32.4 RDW 13.6 Plt Count 226 MPV 8.3 Absolute Neuts (auto) 3.5 Neutrophils % 48.7 Lymphocytes % 37.7 Monocytes % 8.3 Eosinophils % 4.3 Basophils % 1.0 Nucleated RBC % 0 Sodium 145 Potassium 4.3 Chloride 111 H Carbon Dioxide 24 Anion Gap 9 BUN 14 Creatinine 0.5 L Creat Clearance w eGFR > 60 Random Glucose 91 Calcium 8.5 Magnesium 2.0 Total Bilirubin 0.3 AST 35 ALT 47 Alkaline Phosphatase 89 Total Protein 6.3 L Albumin 3.1 L Active Medications Generic Name Dose Route Start Last Admin Trade Name Freq PRN Reason Stop Dose Admin Acetaminophen 650 mg 08/03/18 20:40 Tylenol - PO Q6H PRN PAIN LEVEL 6-10 Heparin Sodium (Porcine) 5,000 unit 08/03/18 06:00 08/07/18 21:17 Heparin - SQ 5,000 unit TID ERICKA Administration Lactated Ringer's 1,000 ml in 1,000 mls @ 75 mls/hr 08/03/18 09:15 08/07/18 21:17 Lactated Ringers Solution IV 75 mls/hr ASDIR ERICKA Administration Cefazolin Sodium/Dextrose 2 gm in 50 mls @ 100 mls/hr 08/07/18 07:43 17:23 Ancef 2 Gm Premixed Ivpb - IVPB 08/10/18 02:29 100 mls/hr Q8H-IV ERICKA Administration Imaging: ct/lower extremity w/o contrast 08/04/2018 : No discrete areas of bone erosion noted. subcutaneous edema seen along the distal left tibia medially which may be a posttraumatic and/or infections in nature. Ankle/foot left 07/29/2018: 3 views of ankle, some swelling, intact mortise, calcaneal spurring but no signs of fracture or subluxation and no sign of blastic or lytic changes. mri/lower ext joint mr wo ctr/left 08/02/2018: 1.subcutaneous soft tissue edema along the medial aspect of the distal calf at the level of the distal tibia diametaphysis extending distally to the level of the medial mallesous which may be consistent with cellulitis with small focal fluid collection prox. 2. bone marrow edema of the medial aspect of the distal tibial metaphysis could represent either a microtrabecular fracture from the injury however the proximity to the fluid raises the possibility of osteomyelitis. 3. occult fracture of the distal fibula with bone marrow edema. 4. subchrondral cystic changes of the medial talar dome which may be degenerative or due to old osteochondral injury. 5. Mild tendinosis of the distal achiles tendon and small calcanceal spur at the plantar fascia insertion. Assessment/plan: Patient is a 67 year old female with a significant past medical history of HTN. She presents to ED with 2 weeks of worsening left lower limb pain, redness and swelling that started after hitting a metal door. It did not respond to keflex or bactrim PO. ID/Ortho: Left leg cellulitis with edema Occult fracture of the distal fibula with bone marrow edema seen on MRI Left tibia fracture vs osteomyelitis. - Failed outpatient antibiotic therapy. - On Cefazolin (day #5). - Elevate left lower extremity on 3 pillows encouraged - Manage pain - Patient to ambulate with boot and RW - fall precautions - ID following - Ortho noted reviewed - length of antibiotic therapy to be determined - consulted IR for possible aspiration of fluid collection seen on ultrasound. Card: Hypertension, on no home medications. controlled. fen tolerating PO monitor electrolytes low salt diet prophy heparin full code Visit type - Emergency Visit Emergency Visit: Yes ED Registration Date: 08/03/18 Care time: The patient presented to the Emergency Department on the above date and was hospitalized for further evaluation of their emergent condition. - New Patient This patient is new to me today: No - Critical Care Critical Care patient: No - Discharge Referral Referred to [facility] Med P.C.: No
[2018-08-08] MEDS: CEFAZOLIN 2 GM/D5W 2 GM/50 ML ML IVPB SCH ×3 (02:05→17:41)
[2018-08-08] MEDS: HEPARIN NA (PORCINE) 5,000 UNITS/ML 1ML VIAL SQ SCH ×3 (05:31→21:15)
[2018-08-08 08:20] LABS: BASO % 0.8 % (0-2.0); EOS % 4.2 % (0-4.5); HEMATOCRIT 37.5 % (32.4-45.2); HEMOGLOBIN 12.1 GM/dL (10.7-15.3); LYMPH % 34.8 % (8-40); MCH 27.8 pg (25.7-33.7); MCHC 32.1 g/dl (32.0-36.0); MEAN CELL VOLUME 86.4 fl (80-96); MEAN PLT VOLUME 8.9 fl (7.5-11.1); MONO % 9.2 % (3.8-10.2); PLATELET COUNT 226 K/MM3 (134-434); RBC 4.34 M/mm3 (3.60-5.2); WHITE BLOOD COUNT 6.9 K/mm3 (4.0-10.0)
[2018-08-08 09:20] LABS: ALK PHOS 83 U/L (45-117); ANION GAP 8 MMOL/L (8-16); BILIRUBIN,TOTAL 0.3 mg/dL (0.2-1); BLOOD UREA NITROGEN 16 mg/dL (7-18); CALCIUM 8.8 mg/dL (8.5-10.1); CHLORIDE 108 mmol/L (98-107); CO2 26 mmol/L (21-32); CREATININE 0.6 mg/dL (0.55-1.3); GLUCOSE,RANDOM 89 mg/dL (74-106); MAGNESIUM 2.3 mg/dL (1.8-2.4); POTASSIUM 4.1 mmol/L (3.5-5.1); SGOT/AST 69 U/L (15-37); SGPT/ALT 83 U/L (13-61); SODIUM 141 mmol/L (136-145); TOT PROT 6.2 g/dl (6.4-8.2)
--- NOTE | 2018-08-08 15:04 | PN ---
Physical Exam: SUBJECTIVE: Patient seen and examined. She continues to complain of pain in her left leg when she dangles it or stands on it. OBJECTIVE: Vital Signs Period Temp Pulse Resp BP Sys/Chen Pulse Ox Last 24 Hr 98.2 F-99.4 F 65-88 18-20 115-145/63-89 95-96 GENERAL: The patient is awake, alert, and fully oriented, in no acute distress. LUNGS: Breath sounds equal, clear to auscultation bilaterally, no wheezes, no crackles, no accessory muscle use. HEART: Regular rate and rhythm, S1, S2 without murmur, rub or gallop. ABDOMEN: Soft, nontender, nondistended, normoactive bowel sounds, no guarding, no rebound, no hepatosplenomegaly, no masses. EXTREMITIES: 2+ pulses, warm, well-perfused, (+) mild swelling around left ankle , (+) hyperpigmentation around left lower leg wound. Laboratory Results - last 24 hr 08/08/18 08/08/18 08/08/18 07:00 07:00 07:00 WBC 6.9 RBC 4.34 Hgb 12.1 Hct 37.5 MCV 86.4 MCH 27.8 MCHC 32.1 RDW 14.0 Plt Count 226 MPV 8.9 Absolute Neuts (auto) 3.5 Neutrophils % 51.0 Lymphocytes % 34.8 Monocytes % 9.2 Eosinophils % 4.2 Basophils % 0.8 Nucleated RBC % 0 ESR 17 Sodium 141 Potassium 4.1 Chloride 108 H Carbon Dioxide 26 Anion Gap 8 BUN 16 Creatinine 0.6 Creat Clearance w eGFR > 60 Random Glucose 89 Calcium 8.8 Magnesium 2.3 Total Bilirubin 0.3 AST 69 H ALT 83 H Alkaline Phosphatase 83 C-Reactive Protein 0.5 H Total Protein 6.2 L Albumin 3.0 L Active Medications Generic Name Dose Route Start Last Admin Trade Name Freq PRN Reason Stop Dose Admin Acetaminophen 650 mg 08/03/18 20:40 Tylenol - PO Q6H PRN PAIN LEVEL 6-10 Clopidogrel Bisulfate 75 mg 08/08/18 15:03 Plavix - PO DAILY ERICKA Furosemide 20 mg 08/09/18 10:00 Lasix - PO DAILY ERICKA Heparin Sodium (Porcine) 5,000 unit 08/03/18 06:00 08/08/18 14:27 Heparin - SQ 5,000 unit TID ERICKA Administration Cefazolin Sodium/Dextrose 2 gm in 50 mls @ 100 mls/hr 08/07/18 07:43 10:05 Ancef 2 Gm Premixed Ivpb - IVPB 08/10/18 02:29 100 mls/hr Q8H-IV ERICKA Administration Potassium Chloride 20 meq 08/09/18 10:00 K-Dur - PO DAILY ERICKA ASSESSMENT/PLAN: This is a 67 year old woman with a history of HTN who presented to ED with left leg pain, redness, and swelling that started after hitting the leg on a metal door and that did not improve with Keflex or Bactrim. 1. Left leg cellulitis - Failed outpatient treatment - No evidence of cellulitis - Continue Ancef - US shows soft tissue swelling over medial malleolus with multiple hypoechoic densities suggestive of small fluid collections - ID follow up 2. Left fibula fracture, osteochondral defect of left talus - Weight-bearing as tolerated with CAM boot and walker 3. HTN - Patient reports she is on Lasix 20 mg daily at home and has been taking her own med here. Patient advised not to take her own med. - Continue Lasix with KCl 4. Patient also reports she takes Plavix 75 mg daily at home because she is unable to take baby aspirin which causes stomach problems. She has not been taking her own Plavix while here because she has been receiving heparin subq. Will resume Plavix Visit type - Emergency Visit Emergency Visit: Yes ED Registration Date: 08/03/18 Care time: The patient presented to the Emergency Department on the above date and was hospitalized for further evaluation of their emergent condition. - New Patient This patient is new to me today: No - Critical Care Critical Care patient: No - Discharge Referral Referred to [facility] Med P.C.: No
[2018-08-08] MEDS: CLOPIDOGREL BISULFATE 75 MG TABLET (FP) PO SCH (15:50)
[2018-08-09] MEDS: CEFAZOLIN 2 GM/D5W 2 GM/50 ML ML IVPB SCH ×3 (01:55→17:34)
[2018-08-09] MEDS: HEPARIN NA (PORCINE) 5,000 UNITS/ML 1ML VIAL SQ SCH ×3 (06:23→21:38)
[2018-08-09 07:27] LABS: ALBUMIN 3.1 g/dl (3.4-5.0); ALK PHOS 89 U/L (45-117); ANION GAP 9 MMOL/L (8-16); BILIRUBIN,DIRECT 0.1 mg/dL (0.0-0.2); BILIRUBIN,TOTAL 0.3 mg/dL (0.2-1); BLOOD UREA NITROGEN 17 mg/dL (7-18); CALCIUM 8.8 mg/dL (8.5-10.1); CHLORIDE 110 mmol/L (98-107); CO2 23 mmol/L (21-32); CREATININE 0.6 mg/dL (0.55-1.3); GLUCOSE,RANDOM 97 mg/dL (74-106); POTASSIUM 4.3 mmol/L (3.5-5.1); SGOT/AST 80 U/L (15-37); SGPT/ALT 106 U/L (13-61); SODIUM 142 mmol/L (136-145); TOT PROT 6.3 g/dl (6.4-8.2)
[2018-08-09] MEDS: CLOPIDOGREL BISULFATE 75 MG TABLET (FP) PO SCH (09:50)
[2018-08-09] MEDS: FUROSEMIDE 20 MG TABLET (FP) PO SCH (09:50)
[2018-08-09] MEDS: POTASSIUM CHLORIDE TABS 20 MEQ TABLET.ER (FP) PO SCH (09:50)
--- NOTE | 2018-08-09 14:44 | PN ---
Progress Note (short form) - Note Progress Note: Ortho Pt seen and examined- improving left LE cellulitis and left distal fibula fx Selected Entries 08/09/18 10:00 Temperature 98.6 F Pulse Rate 89 Respiratory 20 Rate Blood Pressure 140/92 decr pain, decr erythema, + ttp lateral mal calf soft, nt, nvi a/p Abx as per ID PT wbat with boot d/c planning d/w Dr. Cooley
--- NOTE | 2018-08-09 21:08 | PN ---
Physical Exam: SUBJECTIVE: Patient seen and examined OBJECTIVE: Vital Signs Period Temp Pulse Resp BP Sys/Chen Pulse Ox Last 24 Hr 97.3 F-98.6 F 67-89 20-20 101-140/60-92 GENERAL: The patient is awake, alert, and fully oriented, in no acute distress. HEAD: Normal with no signs of trauma. EYES: PERRL, extraocular movements intact, sclera anicteric, conjunctiva clear. No ptosis. ENT: Ears normal, nares patent, oropharynx clear without exudates, moist mucous membranes. NECK: Trachea midline, full range of motion, supple. LUNGS: Breath sounds equal, clear to auscultation bilaterally, no wheezes, no crackles, no accessory muscle use. HEART: Regular rate and rhythm, S1, S2 without murmur, rub or gallop. ABDOMEN: Soft, nontender, nondistended, normoactive bowel sounds, no guarding, no rebound, no hepatosplenomegaly, no masses. EXTREMITIES: 2+ pulses, warm, well-perfused, no edema. NEUROLOGICAL: Cranial nerves II through XII grossly intact. Normal speech, gait not observed. PSYCH: Normal mood, normal affect. SKIN: Warm, dry, normal turgor, no rashes or lesions noted Laboratory Results - last 24 hr 08/09/18 05:55 Sodium 142 Potassium 4.3 Chloride 110 H Carbon Dioxide 23 Anion Gap 9 BUN 17 Creatinine 0.6 Creat Clearance w eGFR > 60 Random Glucose 97 Calcium 8.8 Total Bilirubin 0.3 Direct Bilirubin 0.1 AST 80 H ALT 106 H Alkaline Phosphatase 89 Total Protein 6.3 L Albumin 3.1 L Active Medications Generic Name Dose Route Start Last Admin Trade Name Freq PRN Reason Stop Dose Admin Acetaminophen 650 mg 08/03/18 20:40 Tylenol - PO Q6H PRN PAIN LEVEL 6-10 Clopidogrel Bisulfate 75 mg 08/08/18 15:03 08/09/18 09:50 Plavix - PO 75 mg DAILY ERICKA Administration Furosemide 20 mg 08/09/18 10:00 08/09/18 09:50 Lasix - PO 20 mg DAILY ERICKA Administration Heparin Sodium (Porcine) 5,000 unit 08/03/18 06:00 08/09/18 13:16 Heparin - SQ 5,000 unit TID ERICKA Administration Cefazolin Sodium/Dextrose 2 gm in 50 mls @ 100 mls/hr 08/07/18 07:43 17:34 Ancef 2 Gm Premixed Ivpb - IVPB 08/10/18 02:29 100 mls/hr Q8H-IV ERICKA Administration Potassium Chloride 20 meq 08/09/18 10:00 08/09/18 09:50 K-Dur - PO 20 meq DAILY ERICKA Administration ASSESSMENT/PLAN:
[2018-08-10] MEDS: CEFAZOLIN 2 GM/D5W 2 GM/50 ML ML IVPB SCH ×2 (01:46→17:45)
--- NOTE | 2018-08-10 09:50 | PN ---
Progress Note (short form) - Note Progress Note: Ortho Pt seen and examined- improving left LE cellulitis and left distal fibula fx. s/ p aspiration of medial aspect of ankle Selected Entries 08/10/18 05:47 Temperature 98.4 F Pulse Rate 64 Respiratory 20 Rate Blood Pressure 124/49 L Laboratory Tests 08/08/18 07:00 WBC 6.9 Hgb 12.1 Hct 37.5 Plt Count 226 decr pain, decr erythema, + ttp lateral mal calf soft, nt, nvi a/p f/u aspiration Abx as per ID PT wbat with boot d/c planning d/w Dr. Cooley
[2018-08-10] MEDS: FUROSEMIDE 20 MG TABLET (FP) PO SCH (10:30)
[2018-08-10] MEDS ORDERED: CEFAZOLIN 2 GM/D5W 2 GM/50 ML ML IVPB ONE (10:30)
[2018-08-10] MEDS: CLOPIDOGREL BISULFATE 75 MG TABLET (FP) PO SCH (10:30)
[2018-08-10] MEDS: POTASSIUM CHLORIDE TABS 20 MEQ TABLET.ER (FP) PO SCH (10:30)
[2018-08-10] MEDS ORDERED: PICC LINE 8 ML FLUSH PROTOCOL IVPUSH PRN (15:30)
--- NOTE | 2018-08-10 15:39 | PN ---
Progress Note, Physician History of Present Illness: S/P IR aspiration L LE fluid collection small amt blood obtained c/w hematoma Culture pending Awake, alert C/O persistant L LE pain No c/o fever/ chills Tolerating antibiotics - Current Medication List Current Medications: Active Medications Acetaminophen (Tylenol -) 650 mg PO Q6H PRN PRN Reason: PAIN LEVEL 6-10 Clopidogrel Bisulfate (Plavix -) 75 mg PO DAILY ERICKA Last Admin: 08/10/18 10:30 Dose: 75 mg Furosemide (Lasix -) 20 mg PO DAILY ERICKA Last Admin: 08/10/18 10:30 Dose: 20 mg Cefazolin Sodium/Dextrose (Ancef 2 Gm Premixed Ivpb -) 2 gm in 50 mls @ 100 mls /hr IVPB Q8H-IV ERICKA Potassium Chloride (K-Dur -) 20 meq PO DAILY ERICKA Last Admin: 08/10/18 10:30 Dose: 20 meq - Objective Vital Signs: Vital Signs Temperature 98.5 F 08/10/18 10:00 Pulse Rate 85 08/10/18 10:00 Respiratory Rate 20 08/10/18 10:00 Blood Pressure 138/85 08/10/18 10:00 O2 Sat by Pulse Oximetry (%) 98 08/10/18 08:59 Constitutional: Yes: No Distress Cardiovascular: Yes: Regular Rate and Rhythm, S1, S2 Respiratory: Yes: CTA Bilaterally Gastrointestinal: Yes: Normal Bowel Sounds, Soft. No: Tenderness Extremities: Yes: Other (+ approx 6mm black eschar dry. Still with surrounding erythema/ warmth/ tenderness approx 5x7cm) Labs: CBC, BMP 08/08/18 07:00 08/09/18 05:55 INR, PTT INR 1.16 (0.83-1.09) H 08/03/18 06:30 Assessment/Plan Cellulitis L LE Fibular fracture S/P aspiration subcutaneous fluid collection hematoma v. abscess Continue cefazolin Check asp c/s PICC for outpatient antibiotics
--- NOTE | 2018-08-10 21:45 | PN ---
Physical Exam: SUBJECTIVE: Patient seen and examined OBJECTIVE: Vital Signs Period Temp Pulse Resp BP Sys/Chen Pulse Ox Last 24 Hr 98 F-98.5 F 64-85 20-20 124-138/49-85 98 GENERAL: The patient is awake, alert, and fully oriented, in no acute distress. HEAD: Normal with no signs of trauma. EYES: PERRL, extraocular movements intact, sclera anicteric, conjunctiva clear. No ptosis. ENT: Ears normal, nares patent, oropharynx clear without exudates, moist mucous membranes. NECK: Trachea midline, full range of motion, supple. LUNGS: Breath sounds equal, clear to auscultation bilaterally, no wheezes, no crackles, no accessory muscle use. HEART: Regular rate and rhythm, S1, S2 without murmur, rub or gallop. ABDOMEN: Soft, nontender, nondistended, normoactive bowel sounds, no guarding, no rebound, no hepatosplenomegaly, no masses. EXTREMITIES: 2+ pulses, warm, well-perfused, no edema. NEUROLOGICAL: Cranial nerves II through XII grossly intact. Normal speech, gait not observed. PSYCH: Normal mood, normal affect. SKIN: Warm, dry, normal turgor, no rashes or lesions noted Active Medications Generic Name Dose Route Start Last Admin Trade Name Freq PRN Reason Stop Dose Admin Acetaminophen 650 mg 08/03/18 20:40 Tylenol - PO Q6H PRN PAIN LEVEL 6-10 Clopidogrel Bisulfate 75 mg 08/08/18 15:03 08/10/18 10:30 Plavix - PO 75 mg DAILY ERICKA Administration Furosemide 20 mg 08/09/18 10:00 08/10/18 10:30 Lasix - PO 20 mg DAILY ERICKA Administration IV Flush 8 ml 08/10/18 15:30 Picc Line Flush IVPUSH PRN PRN Protocol Cefazolin Sodium/Dextrose 2 gm in 50 mls @ 100 mls/hr 08/10/18 18:00 17:45 Ancef 2 Gm Premixed Ivpb - IVPB 100 mls/hr Q8H-IV ERICKA Administration Potassium Chloride 20 meq 08/09/18 10:00 08/10/18 10:30 K-Dur - PO 20 meq DAILY ERICKA Administration ASSESSMENT/PLAN:
[2018-08-11] MEDS: CEFAZOLIN 2 GM/D5W 2 GM/50 ML ML IVPB SCH ×2 (02:01→10:16)
--- NOTE | 2018-08-11 09:51 | PN ---
Progress Note (short form) - Note Progress Note: Ortho Pt seen and examined- improving left LE cellulitis and left distal fibula fx. s/ p aspiration of medial aspect of ankle Selected Entries 08/11/18 09:00 Temperature 97.9 F Pulse Rate 77 Respiratory 18 Rate Blood Pressure 117/81 Laboratory Tests 08/08/18 07:00 WBC 6.9 Hgb 12.1 Hct 37.5 Plt Count 226 decr pain, decr erythema, calf soft, nt, nvi a/p f/u aspiration cultures Abx as per ID PT wbat with boot d/c planning d/w Lent
[2018-08-11] MEDS: POTASSIUM CHLORIDE TABS 20 MEQ TABLET.ER (FP) PO SCH (10:16)
[2018-08-11] MEDS: CLOPIDOGREL BISULFATE 75 MG TABLET (FP) PO SCH (10:16)
[2018-08-11] MEDS: FUROSEMIDE 20 MG TABLET (FP) PO SCH (10:16)
--- NOTE | 2018-08-11 12:22 | DS ---
Physical Exam: SUBJECTIVE: Patient seen and examined OBJECTIVE: Vital Signs Period Temp Pulse Resp BP Sys/Chen Pulse Ox Last 24 Hr 97.9 F-98 F 71-79 18-20 109-131/57-81 98-98 PHYSICAL EXAM GENERAL: The patient is awake, alert, and fully oriented, in no acute distress. HEAD: Normal with no signs of trauma. EYES: PERRL, extraocular movements intact, sclera anicteric, conjunctiva clear. ENT: Ears normal, nares patent, oropharynx clear without exudates, moist mucous membranes. NECK: Trachea midline, full range of motion, supple. LUNGS: Breath sounds equal, clear to auscultation bilaterally, no wheezes, no crackles, no accessory muscle use. HEART: Regular rate and rhythm, S1, S2 without murmur, rub or gallop. ABDOMEN: Soft, nontender, nondistended, normoactive bowel sounds, no guarding, no rebound, no hepatosplenomegaly, no masses. EXTREMITIES: 2+ pulses, warm, well-perfused, no edema. NEUROLOGICAL: Cranial nerves II through XII grossly intact. Normal speech, gait not observed. PSYCH: Normal mood, normal affect. SKIN: Warm, dry, normal turgor, no rashes or lesions noted. LABS HOSPITAL COURSE: Date of Admission:08/03/18 Date of Discharge: 08/11/18 Minutes to complete discharge: 35 Discharge Summary Reason For Visit: OSTEOMYELITIS Current Active Problems Chronic ulcer of leg (Acute) Compartment syndrome of left lower extremity (Acute) Osteomyelitis (Acute) Condition: Stable - Instructions Referrals: Perry Vazquez MD [Staff Physician] - Disposition: HOME - Home Medications Comprehensive Discharge Medication List: Ambulatory Orders Acetaminophen [Tylenol] 650 mg PO DAILY 08/03/18 Clopidogrel Bisulfate [Clopidogrel] 75 mg PO DAILY 08/03/18 Furosemide 20 mg PO DAILY 08/03/18 Potassium Chloride 20 meq PO DAILY 08/03/18 This patient is new to me today: No Emergency Visit: Yes ED Registration Date: 08/03/18 Care time: The patient presented to the Emergency Department on the above date and was hospitalized for further evaluation of their emergent condition. Critical Care patient: No - Discharge Referral Referred to [facility] Med P.C.: No
[2018-08-11] MEDS ORDERED: CEFTRIAXONE 2 GM in DEXTROSE 5%-WATER 100 ML IVPB SCH (13:15)
[2018-08-11] MEDS ORDERED: DEXTROSE 5%-WATER 100 ML IVPB ONE (13:18)
--- NOTE | 2018-08-11 13:52 | PN ---
Progress Note, Physician History of Present Illness: S/P IR aspiration L LE fluid collection small amt blood obtained c/w hematoma Culture no growth Awake, alert Reports less L LE pain No c/o fever/ chills Tolerating antibiotics - Current Medication List Current Medications: Active Medications Acetaminophen (Tylenol -) 650 mg PO Q6H PRN PRN Reason: PAIN LEVEL 6-10 Clopidogrel Bisulfate (Plavix -) 75 mg PO DAILY ERICKA Last Admin: 08/11/18 10:16 Dose: 75 mg Furosemide (Lasix -) 20 mg PO DAILY ERICKA Last Admin: 08/11/18 10:16 Dose: 20 mg Ceftriaxone Sodium 2 gm/ (Dextrose) 100 mls @ 200 mls/hr IVPB DAILY ERICKA; Protocol Last Admin: 08/11/18 13:28 Dose: 200 mls/hr Potassium Chloride (K-Dur -) 20 meq PO DAILY ERICKA Last Admin: 08/11/18 10:16 Dose: 20 meq - Objective Vital Signs: Vital Signs Temperature 97.9 F 08/11/18 09:00 Pulse Rate 77 08/11/18 09:00 Respiratory Rate 18 08/11/18 09:00 Blood Pressure 117/81 08/11/18 09:00 O2 Sat by Pulse Oximetry (%) 98 08/11/18 09:00 Constitutional: Yes: No Distress Eyes: Yes: Conjunctiva Clear Cardiovascular: Yes: Regular Rate and Rhythm, S1, S2 Respiratory: Yes: CTA Bilaterally Gastrointestinal: Yes: Normal Bowel Sounds, Soft. No: Tenderness Extremities: Yes: Other (L LE erythema improved. Eschar dry) Labs: CBC, BMP 08/08/18 07:00 08/09/18 05:55 INR, PTT INR 1.16 (0.83-1.09) H 08/03/18 06:30 Assessment/Plan Cellulitis L LE improved Fibular fracture S/P aspiration subcutaneous fluid collection - hematoma Aspirate c/s no growth Switch to ceftriaxone 2gm q24h x 2w for outpatient tx
[2018-08-11 14:32] VITALS: BP 133/55; PULSE 91; TEMP 98.3
== END 2018-08-11 15:03 | disposition home or self-care (01) | DRG 603 ==
LOC: JER 19:54 → JERBED 08-03 00:46 → UNDOADMIN 08-03 01:25 → J6S 08-03 18:55
PROVIDERS: ADMIT Internal Medicine; ATTEND Nurse Practitioner Acute Care
PROC: 0Y9L3ZZ Drainage of Left Ankle Region, Percutaneous Approach (ICD-10-PCS; principal; 2018-08-09)
DX: L03.116 Cellulitis of left lower limb (principal); M86.262 Subacute osteomyelitis, left tibia and fibula; L97.929 Non-pressure chronic ulcer of unspecified part of left lower leg with unspecified severity; L02.416 Cutaneous abscess of left lower limb; S82.402A Unspecified fracture of shaft of left fibula, initial encounter for closed fracture; I10 Essential (primary) hypertension; W22.8XXA Striking against or struck by other objects, initial encounter; Y93.89 Activity, other specified; Y92.89 Other specified places as the place of occurrence of the external cause; Y99.8 Other external cause status
CPT/HCPCS: 36415; 71045-TC-FY; 73700-TC-RT; 73721-LT-TC; 76882-TC-RT-FY; 76942-TC; 80048; 80053; 80076; 81003; 83036; 83605; 83735; 84100; 85025; 85610; 85651; 85730; 86140; 87040; 87070; 87075; 87205; 90715; 93005; 93010; 97116-GP; 97162-GP; 99284-25; J1644

== ENCOUNTER → 2019-05-31 | Day surgery (SDC) | payer OTHER | LOC: JRADUS-SUR 11:15 ==

== ENCOUNTER → 2019-06-01 | Day surgery (SDC) | payer OTHER ==
--- NOTE | 2019-06-05 16:06 | PATH ---
Surgical Pathology Report Patient Name: [facility]. Rec. #: [id number] /Age/Gender: 1950 (Age: 68) / F Account: [id number] Location: [facility] Taken: 06/01/2019 Received: 06/01/2019 Reported: 06/04/2019 Physicians: Kate Her MD Fernando J. Camacho, M.D. Specimen(s) Received RIGHT BREAST CORE BIOPSY Clinical History Nonpalpable lesion Ultrasound findings: Suspicious, highly suspicious/malignant 1.26 cm irregular mass Final Diagnosis BREAST, RIGHT, RETROAREOLAR, 9-10:00, ULTRASOUND GUIDED CORE BIOPSY: ATYPICAL DUCTAL HYPERPLASIA WITH APOCRINE FEATURES. Electronically Signed Ana Burrell M.D. Gross Description Received in formalin labeled "right breast retroareolar 9-10:00," are 3 sears-yellow, cylindrical portions of fibroadipose tissue ranging from 0.3-1.0 cm in length and averaging 0.1 cm diameter. The specimens are submitted in toto in one cassette. Time to formalin fixation: Less than one minute Total formalin fixation time: Approximately 10 hours. /06/01/2019 saudi06/01/2019
== END | disposition home or self-care (01) ==
LOC: JRADUS-SUR 07:50
PROVIDERS: ATTEND Family Medicine
PROC: 0HBT3ZX Excision of Right Breast, Percutaneous Approach, Diagnostic (ICD-10-PCS; principal; 2019-06-01)
DX: D48.61 Neoplasm of uncertain behavior of right breast (principal); N60.91 Unspecified benign mammary dysplasia of right breast
CPT/HCPCS: 19083; 87899; 88305-TC; A4648

== ENCOUNTER 2023-06-04 20:03 | Inpatient (IN) | payer OTHER ==
[2023-06-04 20:21] VITALS: BMI 31.1
[2023-06-04] MEDS ORDERED: SODIUM CHLORIDE 0.9% 500 ML INFUS.BAG IV ONE (21:09)
[2023-06-04 22:01] LABS: URINE APPEARANCE CLEAR; URINE BILIRUBIN NEGATIVE (NEGATIVE); URINE COLOR YELLOW; URINE GLUCOSE (UA) NEGATIVE (NEGATIVE); URINE KETONE NEGATIVE (NEGATIVE); URINE LEUK ESTERASE NEGATIVE (NEGATIVE); URINE NITRITE NEGATIVE (NEGATIVE); URINE PROTEIN NEGATIVE (NEGATIVE); URINE UROBILINOGEN 0.2 mg/dL (0.2-1.0)
[2023-06-04] MEDS ORDERED: morphine CARPU-JECT 4 MG/1 ML DISP.SYRIN IVPUSH ONE (22:01)
[2023-06-04 22:09] LABS: BASO % 1.2 % (0-2.0); EOS % 0.8 % (0-4.5); HEMATOCRIT 41.5 % (32.4-45.2); HEMOGLOBIN 13.5 GM/dL (10.7-15.3); LYMPH % 14.8 % (8-40); MCHC 32.6 g/dl (32.0-36.0); MEAN CELL VOLUME 95.1 fl (80-96); MONO % 12.2 % (3.8-10.2); PLATELET COUNT 176 10^3/uL (134-434); RBC 4.36 M/mm3 (3.60-5.2); RDW 15.8 % (11.6-15.6)
[2023-06-04] MEDS ORDERED: morphine SULFATE 4 MG/ML VIAL ONE (22:10)
[2023-06-04 22:25] LABS: CHLORIDE 111 mmol/L (98-107); SODIUM 139 mmol/L (136-145)
[2023-06-04 22:27] LABS: CALCIUM 8.6 mg/dL (8.5-10.1)
[2023-06-04 22:28] LABS: ALBUMIN 3.3 g/dl (3.4-5.0); BLOOD UREA NITROGEN 16.8 mg/dL (7-18); CO2 23 mmol/L (21-32); GLUCOSE,RANDOM 91 mg/dL (74-106); LIPASE 77 U/L (73-393)
[2023-06-04 22:30] LABS: SGPT/ALT 41 U/L (13-61)
[2023-06-04 22:31] LABS: CREATININE 0.7 mg/dL (0.55-1.3); SGOT/AST 103 U/L (15-37)
[2023-06-04 22:32] LABS: BILIRUBIN,TOTAL 0.4 mg/dL (0.2-1); TOT PROT 6.9 g/dl (6.4-8.2)
[2023-06-04 22:34] LABS: ALK PHOS 130 U/L (45-117)
[2023-06-04 22:46] LABS: ANION GAP 5 MMOL/L (8-16); POTASSIUM 7.9 mmol/L (3.5-5.1)
[2023-06-04] MEDS ORDERED: KETOROLAC TROMETHAMINE 15 MG/ML VIAL IVPUSH ONE (22:53)
[2023-06-04] MEDS ORDERED: KETOROLAC TROMETHAMINE 15 MG/ML VIAL ONE (22:58)
[2023-06-04 23:40] LABS: CALCIUM 8.3 mg/dL (8.5-10.1)
[2023-06-04 23:41] LABS: ALBUMIN 3.1 g/dl (3.4-5.0); BLOOD UREA NITROGEN 17.2 mg/dL (7-18)
[2023-06-04 23:44] LABS: CREATININE 0.5 mg/dL (0.55-1.3)
[2023-06-04 23:46] LABS: BILIRUBIN,TOTAL 0.3 mg/dL (0.2-1)
[2023-06-05] MEDS ORDERED: MAG HYDROX/AL HYDROX/SIMETH 30 ML UNIT-DOSE CUP PO ONE (03:34)
[2023-06-05] MEDS ORDERED: MAG HYDROX/AL HYDROX/SIMETH 30 ML UNIT-DOSE CUP ONE (03:35)
[2023-06-05] MEDS ORDERED: LORazepam 2 MG TABLET PO ONE (03:41)
[2023-06-05] MEDS ORDERED: LORazepam 1 MG TABLET ONE (03:43)
[2023-06-05] MEDS: LACTATED RINGERS SOLUTION 1,000 ML/1,000 ML INFUS.BAG IV SCH ×2 (05:26→17:07)
[2023-06-05] MEDS ORDERED: KETOROLAC TROMETHAMINE 15 MG/ML VIAL IVPUSH PRN (16:27)
[2023-06-05] MEDS ORDERED: ACETAMINOPHEN 325 MG TABLET (FP) PO PRN ×2 (16:27→16:28)
[2023-06-05] MEDS: HEPARIN NA (PORCINE) 5,000 UNITS/ML 1ML VIAL SQ SCH (21:32)
[2023-06-05] MEDS: MELATONIN 1 MG TABLET PO SCH (21:32)
[2023-06-06 09:41] LABS: INR 1.26 (0.83-1.09); PROTHROMBIN TIME (PATIENT) 14.6 SEC (9.7-13.0)
[2023-06-06 09:47] LABS: BASO % 0.7 % (0-2.0); HEMATOCRIT 34.6 % (32.4-45.2); HEMOGLOBIN 11.6 GM/dL (10.7-15.3); LYMPH % 20.9 % (8-40); MCH 31.4 pg (25.7-33.7); MCHC 33.5 g/dl (32.0-36.0); MEAN CELL VOLUME 93.6 fl (80-96); MEAN PLT VOLUME 9.6 fl (7.5-11.1); MONO % 8.2 % (3.8-10.2); NEUT % 68.2 % (42.8-82.8); PLATELET COUNT 132 10^3/uL (134-434); RBC 3.69 M/mm3 (3.60-5.2); RDW 15.3 % (11.6-15.6); WHITE BLOOD COUNT 4.9 K/mm3 (4.0-10.0)
[2023-06-06 09:56] LABS: POTASSIUM 3.8 mmol/L (3.5-5.1)
[2023-06-06 10:04] LABS: BLOOD UREA NITROGEN 9.3 mg/dL (7-18); CALCIUM 8.3 mg/dL (8.5-10.1)
[2023-06-06 10:05] LABS: ALBUMIN 2.9 g/dl (3.4-5.0); MAGNESIUM 2.1 mg/dL (1.8-2.4)
[2023-06-06 10:08] LABS: CREATININE 0.5 mg/dL (0.55-1.3)
[2023-06-06 10:10] LABS: TOT PROT 5.5 g/dl (6.4-8.2)
[2023-06-06] MEDS: LACTATED RINGERS SOLUTION 1,000 ML/1,000 ML INFUS.BAG IV SCH (11:47)
[2023-06-06] MEDS: HEPARIN NA (PORCINE) 5,000 UNITS/ML 1ML VIAL SQ SCH ×2 (11:48→22:56)
[2023-06-06] MEDS: MELATONIN 1 MG TABLET PO SCH (22:56)
[2023-06-07] MEDS: HEPARIN NA (PORCINE) 5,000 UNITS/ML 1ML VIAL SQ SCH (10:25)
[2023-06-07 11:49] LABS: BASO % 0.7 % (0-2.0); EOS % 2.4 % (0-4.5); HEMATOCRIT 37.7 % (32.4-45.2); HEMOGLOBIN 12.6 GM/dL (10.7-15.3); LYMPH % 16.8 % (8-40); MCH 31.2 pg (25.7-33.7); MCHC 33.4 g/dl (32.0-36.0); MEAN CELL VOLUME 93.4 fl (80-96); MEAN PLT VOLUME 9.5 fl (7.5-11.1); MONO % 6.3 % (3.8-10.2); NEUT % 73.8 % (42.8-82.8); PLATELET COUNT 160 10^3/uL (134-434); RBC 4.04 M/mm3 (3.60-5.2); RDW 15.2 % (11.6-15.6); WHITE BLOOD COUNT 7.3 K/mm3 (4.0-10.0)
[2023-06-07 11:54] LABS: INR 1.14 (0.83-1.09); PROTHROMBIN TIME (PATIENT) 13.2 SEC (9.7-13.0)
[2023-06-07 12:07] LABS: POTASSIUM 4.2 mmol/L (3.5-5.1)
[2023-06-07 12:14] LABS: ALBUMIN 3.3 g/dl (3.4-5.0); BLOOD UREA NITROGEN 14.7 mg/dL (7-18); CREATININE 0.6 mg/dL (0.55-1.3); MAGNESIUM 2.2 mg/dL (1.8-2.4)
[2023-06-07 12:16] LABS: BILIRUBIN,TOTAL 0.4 mg/dL (0.2-1); TOT PROT 6.4 g/dl (6.4-8.2)
[2023-06-07] MEDS ORDERED: CYCLOBENZAPRINE HCL 5 MG TABLET PO ONE (14:03)
[2023-06-07 14:14] VITALS: BP 152/78; PULSE 80; RESP 18; TEMP 98.4
== END 2023-06-07 18:42 | disposition home or self-care (01) | DRG 392 ==
LOC: JER 20:03 → JERBED 22:50 → J7W 06-05 10:04 → OBSVTOIN 06-06 15:03
PROVIDERS: ADMIT Internal Medicine; ATTEND Internal Medicine
DX: R10.11 Right upper quadrant pain (principal); K81.1 Chronic cholecystitis; M06.9 Rheumatoid arthritis, unspecified; I10 Essential (primary) hypertension; E78.5 Hyperlipidemia, unspecified; K82.8 Other specified diseases of gallbladder; Z86.73 Personal history of transient ischemic attack (TIA), and cerebral infarction without residual deficits; Z85.3 Personal history of malignant neoplasm of breast
CPT/HCPCS: 36415; 71046-TC-FY; 74176-TC; 76705-TC; 78226-TC; 80053; 81003; 83690; 83735; 84484; 85025; 85610; 87086; 93005; 93010; 99285-25; A9537; G0378; J1644

== ENCOUNTER 2024-05-10 16:55 | Observation (INO) | payer OTHER ==
[2024-05-10 17:16] VITALS: RESP 18
[2024-05-10] MEDS: IBUPROFEN 400 MG TABLET (FP) PO ONE (18:25)
[2024-05-10] MEDS ORDERED: ACETAMINOPHEN 325 MG TABLET (FP) ONE (18:26)
[2024-05-10] MEDS ORDERED: LIDOCAINE 4% PATCH TP ONE (18:27)
[2024-05-10] MEDS: LIDOCAINE 4% PATCH TP ONE (18:34)
[2024-05-10] MEDS: ACETAMINOPHEN 500 MG TABLET (FP) PO ONE (18:34)
[2024-05-10 20:17] LABS: BASO % 0.3 % (0-2.0); EOS % 1.6 % (0-4.5); HEMOGLOBIN 12.3 GM/dL (10.7-15.3); LYMPH % 27.6 % (8-40); MCH 31.1 pg (25.7-33.7); MCHC 33.2 g/dl (32.0-36.0); MEAN CELL VOLUME 93.6 fl (80-96); MEAN PLT VOLUME 9.1 fl (7.5-11.1); MONO % 10.7 % (3.8-10.2); NEUT % 59.8 % (42.8-82.8); PLATELET COUNT 144 10^3/uL (134-434); RBC 3.95 M/mm3 (3.60-5.2); WHITE BLOOD COUNT 5.2 K/mm3 (4.0-10.0)
[2024-05-10 20:22] LABS: INR 1.08 (0.83-1.09); PROTHROMBIN TIME (PATIENT) 12.2 SEC (9.7-13.0)
[2024-05-10 20:24] LABS: ACTIVATED PTT 27.2 SECONDS (25.2-36.5)
[2024-05-10 20:41] LABS: POTASSIUM 4.1 mmol/L (3.5-5.1)
[2024-05-10 20:43] LABS: ALBUMIN 3.1 g/dl (3.4-5.0); BLOOD UREA NITROGEN 16.6 mg/dL (7-18)
[2024-05-10 20:46] LABS: CREATININE 0.7 mg/dL (0.55-1.3)
[2024-05-10 20:48] LABS: BILIRUBIN,TOTAL 0.2 mg/dL (0.2-1); TOT PROT 6.3 g/dl (6.4-8.2)
[2024-05-11] MEDS ORDERED: KETOROLAC TROMETHAMINE 15 MG/ML VIAL ONE (01:38)
[2024-05-11] MEDS: KETOROLAC TROMETHAMINE 15 MG/ML VIAL IVPUSH ONE (01:48)
[2024-05-11] MEDS ORDERED: ACETAMINOPHEN 325 MG TABLET (FP) PO PRN (05:45)
[2024-05-11 05:57] VITALS: BP 144/77; PULSE 74; TEMP 98.4; BMI 31.0
[2024-05-11] MEDS: LIDOCAINE PATCH REMOVAL MC SCH (05:57)
[2024-05-11] MEDS: ENOXAPARIN NA (PORCINE) 40 MG/0.4 ML DISP.SYRIN SQ SCH (09:48)
== END 2024-05-11 10:03 | disposition home or self-care (01) ==
LOC: JER 16:55 → JERBED 05-11 01:16 → J6S 05-11 05:25
PROVIDERS: ADMIT Internal Medicine; ATTEND Internal Medicine
PROC: 3E0333Z Introduction of Anti-inflammatory into Peripheral Vein, Percutaneous Approach (ICD-10-PCS; principal; 2024-05-11)
DX: S32.591A Other specified fracture of right pubis, initial encounter for closed fracture (principal); X58.XXXA Exposure to other specified factors, initial encounter; Y93.89 Activity, other specified; Y92.89 Other specified places as the place of occurrence of the external cause; I10 Essential (primary) hypertension; M06.9 Rheumatoid arthritis, unspecified; Z85.3 Personal history of malignant neoplasm of breast; E78.5 Hyperlipidemia, unspecified; Z86.73 Personal history of transient ischemic attack (TIA), and cerebral infarction without residual deficits; Z29.89 Encounter for other specified prophylactic measures
CPT/HCPCS: 36415; 72170-TC-FY; 72192-TC; 80053; 85025; 85610; 85730; 86850; 86900; 86901; 93005; 93010; 96374; 99285-25; G0378

== ENCOUNTER 2025-02-11 16:10 | Emergency (ER) | payer OTHER ==
[2025-02-11 16:32] VITALS: BP 142/70; PULSE 73; RESP 18; TEMP 98; BMI 30.9
[2025-02-11] MEDS ORDERED: LIDOCAINE 4% PATCH TP ONE ×2 (17:51→17:53)
[2025-02-11] MEDS ORDERED: ACETAMINOPHEN 325 MG TABLET (FP) ONE (17:51)
[2025-02-11] MEDS ORDERED: IBUPROFEN 400 MG TABLET (FP) PO ONE (17:51)
[2025-02-11] MEDS: IBUPROFEN 400 MG TABLET (FP) PO ONE (18:04)
[2025-02-11] MEDS: LIDOCAINE 4% PATCH TP ONE (18:04)
[2025-02-11] MEDS: ACETAMINOPHEN 325 MG TABLET (FP) PO ONE (18:05)
== END 2025-02-11 19:08 | disposition home or self-care (01) ==
LOC: JERFT 16:10
DX: M17.11 Unilateral primary osteoarthritis, right knee (principal); G89.29 Other chronic pain
CPT/HCPCS: 73562-TC-RT-FY; 73610-TC-LT-FY; 99283-25

== ENCOUNTER 2025-03-05 20:18 | Emergency (ER) | payer OTHER ==
[2025-03-05 20:24] VITALS: BP 152/87; PULSE 105; RESP 20; TEMP 97.7; BMI 35.2
[2025-03-05] MEDS ORDERED: ACETAMINOPHEN INJECTION 100 ML ONE (21:27)
[2025-03-05 22:02] LABS: ABSOLUTE IMMATURE GRANULOCYTES 0.03 x10^3/uL (0.0-0.031); BASOPHILS # 0.05 x10^3/uL (0.01-0.08); EOSINOPHIL % 0.6 % (0.7-5.8); EOSINOPHILS # 0.04 x10^3/uL (0.04-0.36); HEMATOCRIT 39.6 % (34.1-44.9); MCHC 32.8 g/dl (32.2-35.5); MEAN CELL VOLUME 94.3 fl (79.4-94.8); MEAN PLT VOLUME 11.3 fl (9.4-12.3); MONOCYTE # 0.73 x10^3/uL (0.24-0.86); MONOCYTE % 10.6 % (4.7-12.5); PLATELET COUNT 162 x10^3/uL (182-369); RDW 14.9 % (12.4-16.6)
[2025-03-05] MEDS: ACETAMINOPHEN 1000 MG/100 ML BAG IVPB ONE (22:05)
[2025-03-05 22:20] LABS: POTASSIUM 4.8 mmol/L (3.5-5.1)
[2025-03-05 22:22] LABS: ALBUMIN 3.5 g/dl (3.4-5.0); BLOOD UREA NITROGEN 21.3 mg/dL (7-18); CALCIUM 9.4 mg/dL (8.5-10.1)
[2025-03-05 22:24] LABS: CREATININE 0.6 mg/dL (0.55-1.3)
[2025-03-05 22:27] LABS: BILIRUBIN,TOTAL 0.4 mg/dL (0.2-1); TOT PROT 6.9 g/dl (6.4-8.2)
[2025-03-05 22:41] LABS: URINE APPEARANCE CLOUDY; URINE BILIRUBIN 1+ (NEGATIVE); URINE COLOR DK YELLOW; URINE GLUCOSE (UA) NEGATIVE (NEGATIVE); URINE KETONE 1+ (NEGATIVE); URINE LEUK ESTERASE NEGATIVE (NEGATIVE); URINE NITRITE NEGATIVE (NEGATIVE); URINE PROTEIN TRACE (NEGATIVE)
== END 2025-03-06 00:27 | disposition home or self-care (01) ==
LOC: JER 20:18
PROC: 3E033NZ Introduction of Analgesics, Hypnotics, Sedatives into Peripheral Vein, Percutaneous Approach (ICD-10-PCS; principal; 2025-03-05)
DX: R10.11 Right upper quadrant pain (principal); R11.0 Nausea; K40.90 Unilateral inguinal hernia, without obstruction or gangrene, not specified as recurrent
CPT/HCPCS: 36415; 74177-TC; 80053; 81003; 83605; 83690; 85025; 87086; 99285-25; J0131; Q9967

== ENCOUNTER 2025-03-20 18:12 | Emergency (ER) | payer OTHER ==
[2025-03-20 18:21] VITALS: BP 120/85; PULSE 83; RESP 19; TEMP 98.4; BMI 32.8
[2025-03-20] MEDS ORDERED: KETOROLAC TROMETHAMINE 15 MG/ML VIAL ONE (19:58)
[2025-03-20 20:39] LABS: ABSOLUTE IMMATURE GRANULOCYTES 0.02 x10^3/uL (0.0-0.031); BASOPHILS # 0.04 x10^3/uL (0.01-0.08); EOSINOPHIL % 1.2 % (0.7-5.8); EOSINOPHILS # 0.07 x10^3/uL (0.04-0.36); HEMATOCRIT 35.2 % (34.1-44.9); HEMOGLOBIN 11.3 g/dL (11.2-15.7); MCHC 32.1 g/dl (32.2-35.5); MEAN CELL VOLUME 94.4 fl (79.4-94.8); MONOCYTE # 0.69 x10^3/uL (0.24-0.86); PLATELET COUNT 159 x10^3/uL (182-369); RDW 15.1 % (12.4-16.6)
[2025-03-20] MEDS: KETOROLAC TROMETHAMINE 15 MG/ML VIAL IVPUSH ONE (20:53)
[2025-03-20 21:08] LABS: POTASSIUM 4.4 mmol/L (3.5-5.1)
[2025-03-20 21:10] LABS: ALBUMIN 3.1 g/dl (3.4-5.0); BLOOD UREA NITROGEN 17.2 mg/dL (7-18); CALCIUM 9.4 mg/dL (8.5-10.1); MAGNESIUM 2.1 mg/dL (1.8-2.4)
[2025-03-20 21:13] LABS: CREATININE 0.5 mg/dL (0.55-1.3)
[2025-03-20 21:15] LABS: BILIRUBIN,TOTAL 0.3 mg/dL (0.2-1); TOT PROT 6.4 g/dl (6.4-8.2)
== END 2025-03-20 22:48 | disposition home or self-care (01) ==
LOC: JER 18:12
DX: M79.641 Pain in right hand (principal); R60.0 Localized edema; M25.551 Pain in right hip; M25.552 Pain in left hip; M54.9 Dorsalgia, unspecified; M79.604 Pain in right leg; M79.605 Pain in left leg
CPT/HCPCS: 36415; 73110-TC-LT-FY; 73110-TC-RT-FY; 73130-TC-LT-FY; 73130-TC-RT-FY; 80053; 83735; 85025; 85651; 86140; 93970-TC; 99285-25

== ENCOUNTER 2025-05-29 20:00 | Emergency (ER) | payer OTHER ==
[2025-05-29 20:08] VITALS: BP 124/65; PULSE 78; RESP 20; TEMP 98.2; BMI 31.8
== END 2025-05-30 01:08 | disposition home or self-care (01) ==
LOC: JER 20:00
DX: M79.672 Pain in left foot (principal); M79.675 Pain in left toe(s); M25.551 Pain in right hip; M25.561 Pain in right knee
CPT/HCPCS: 73502-TC-RT-FY; 73562-TC-RT-FY; 73610-TC-LT-FY; 73630-TC-LT; 99284-25

== ENCOUNTER 2025-06-19 19:38 | Emergency (ER) | payer OTHER ==
[2025-06-19 19:50] VITALS: BP 127/73; PULSE 79; RESP 16; TEMP 98.2; BMI 21.2
[2025-06-19] MEDS: HYDROCORTISONE 0.5% TOPICAL CREAM 30 GM TUBE TP ONE (21:48)
[2025-06-19] MEDS: HYDROCORTISONE 1% TOPICAL LOTION 118 ML BOTTLE TP ONE (22:02)
== END 2025-06-19 22:31 | disposition home or self-care (01) ==
LOC: JERFT 19:38 → JER 19:38 → JERFT 22:31
DX: S60.562A Insect bite (nonvenomous) of left hand, initial encounter (principal); M25.551 Pain in right hip; M25.561 Pain in right knee; M79.672 Pain in left foot; L98.9 Disorder of the skin and subcutaneous tissue, unspecified; W57.XXXA Bitten or stung by nonvenomous insect and other nonvenomous arthropods, initial encounter; W01.0XXA Fall on same level from slipping, tripping and stumbling without subsequent striking against object, initial encounter
CPT/HCPCS: 73502-TC-RT-FY; 73562-TC-RT-FY; 73630-TC-LT; 99284-25